=== PATIENT | female | born 1960 | race Caucasian/White ===

== ENCOUNTER 2017-09-24 15:29 | Emergency (ER) | payer MEDICAID ==
[2017-09-24 15:29] VITALS: BMI 28.7
[2017-09-24 15:46] VITALS: PULSE 75; TEMP 98.8; O2SAT 100
--- NOTE | 2017-09-24 16:47 | C.PDOC ---
History Of Present Illness 57 y/o F c PMHx vertigo p/w dizziness since yesterday. Describes as spinning sensation when moving her head that is similar to previous vertigo. She also reports that she took her blood pressure yesterday and it was 140/90 and she has never had HTN before. She also reports a fingerstick yesterday of 200+ and she has never had diabetes before either. Denies vision change, vomiting, numbness or tingling. Time Seen by Provider: 09/24/17 15:56 Chief Complaint (Nursing): Dizziness/Lightheaded Past Medical History Vital Signs: Last Vital Signs Temp 98.8 F 09/24/17 15:44 Pulse 75 09/24/17 15:44 Resp 20 09/24/17 15:44 BP 140/91 H 09/24/17 15:44 Pulse Ox 100 09/24/17 17:06 - Medical History PMH: Arthritis Family History: States: No Known Family Hx - Social History Hx Alcohol Use: Yes Hx Substance Use: No - Immunization History Hx Tetanus Toxoid Vaccination: No Hx Influenza Vaccination: No Hx Pneumococcal Vaccination: No Review Of Systems Except As Marked, All Systems Reviewed And Found Negative. Constitutional: Negative for: Fever Cardiovascular: Negative for: Chest Pain Physical Exam - Physical Exam Additional Physical Exam Comments: Gen: NAD Head: NC/AT Eyes: PERRL ENT: MMM Neck: Supple Chest: No tenderness CV: REgular rate Lungs: CTA b/l Abd: Soft, NT Back: No CVA tenderness Skin: No rash Neuro: Alert, no focal deficit ED Course And Treatment - Laboratory Results Result Diagrams: 09/24/17 16:44 09/24/17 16:44 O2 Sat by Pulse Oximetry: 100 Medical Decision Making Medical Decision Making: Symptoms consistent with BPPV. Likely with developing undiagnosed HTN and DM. At time of discharge, patient states she feels all better. Will discharge, f/u ENT, discuss HTN with PMD. Disposition - Disposition Referrals: Leo Escobar MD [Staff Provider] - Disposition: HOME/ ROUTINE Disposition Time: 17:06 Condition: STABLE Prescriptions: Meclizine [Antivert] 25 mg PO TID PRN #20 tab PRN Reason: Dizziness Instructions: Vertigo (a Type of Dizziness), High Blood Pressure in Adults Forms: [employer] (Malawian) Print Language: HEBREW - Clinical Impression Clinical Impression: BPPV (benign paroxysmal positional vertigo)
[2017-09-24 16:52] LABS: BASO # 0.1 K/uL (0.0-0.2); BASO % 1.3 % (0.0-2.0); EOS # 0.2 K/uL (0.0-0.7); EOS % 3.7 % (0.0-4.0); HEMOGLOBIN 13.3 g/dL (11.0-16.0); LYMPH # 2.3 K/uL (1.0-4.3); MEAN CELL VOLUME 93.4 fL (81.0-99.0); MEAN CORPUSCULAR HEMOGLOBIN 32.5 pg (27.0-31.0); MEAN CORPUSCULAR HGB CONC 34.8 g/dL (33.0-37.0); MEAN PLATELET VOLUME 8.8 fL (7.2-11.7); MONO # 0.4 K/uL (0.0-0.8); MONO % 6.6 % (0.0-10.0); NEUT # 3.5 K/uL (1.8-7.0); NEUT % 53.4 % (50.0-75.0); RBC 4.08 Mil/uL (3.80-5.20); RED CELL DISTRIBUTION WIDTH 12.7 % (11.5-14.5); WHITE BLOOD COUNT 6.6 K/uL (4.8-10.8)
[2017-09-24 17:01] LABS: ALB/GLOB RATIO 1.3 (1.0-2.1); ALBUMIN 4.7 g/dL (3.5-5.0); ALT/SGPT 24 U/L (9-52); AST/SGOT 27 U/L (14-36); BLOOD UREA NITROGEN 10 mg/dL (7-17); CALCIUM 9.8 mg/dl (8.6-10.4); GFR AFRICAN-AMERICAN > 60; GFR NON-AFRICAN AMERICAN > 60; SQUAMOUS EPITHIAL 2 /hpf (0-5); URINE BACTERIA RARE (<OCC); URINE BILIRUBIN NEGATIVE (NEGATIVE); URINE BLOOD NEGATIVE (NEGATIVE); URINE CLARITY Clear (Clear); URINE COLOR Straw (YELLOW); URINE GLUCOSE (UA) NORMAL (Normal); URINE LEUKOCYTE ESTERASE NEG Leu/uL (Negative); URINE PROTEIN NEGATIVE (NEGATIVE); URINE UROBILINOGEN NORMAL mg/dL (0.2-1.0)
[2017-09-24 18:14] VITALS: BP 140/90; RESP 18
== END 2017-09-24 17:45 | disposition home or self-care (01) ==
LOC: C.ER 15:29
DX: H81.10 Benign paroxysmal vertigo, unspecified ear (principal)

== ENCOUNTER 2018-06-06 02:14 | Emergency (ER) | payer MEDICAID ==
[2018-06-06 02:14] VITALS: BMI 28.7
[2018-06-06 02:25] VITALS: TEMP 97.7; O2SAT 99
[2018-06-06] MEDS ORDERED: Sodium Chloride 0.9% 500 ML IV ONE (02:50)
[2018-06-06 03:20] LABS: BASO # 0.1 K/uL (0.0-0.2); BASO % 1.1 % (0.0-2.0); EOS # 0.3 K/uL (0.0-0.7); EOS % 4.7 % (0.0-4.0); HEMOGLOBIN 13.2 g/dL (11.0-16.0); LYMPH # 2.4 K/uL (1.0-4.3); LYMPH % 41.1 % (20.0-40.0); MEAN CELL VOLUME 95.7 fL (81.0-99.0); MEAN CORPUSCULAR HGB CONC 33.5 g/dL (33.0-37.0); MEAN PLATELET VOLUME 8.8 fL (7.2-11.7); MONO # 0.4 K/uL (0.0-0.8); MONO % 7.7 % (0.0-10.0); NEUT # 2.6 K/uL (1.8-7.0); NEUT % 45.4 % (50.0-75.0); NRBC % 0.1 % (0.0-2.0); RBC 4.13 Mil/uL (3.80-5.20); RED CELL DISTRIBUTION WIDTH 12.8 % (11.5-14.5); WHITE BLOOD COUNT 5.8 K/uL (4.8-10.8)
--- NOTE | 2018-06-06 03:29 | C.PDOC ---
History Of Present Illness 58 year old female with PMHx of vertigo presents to the ED c/o dizziness since yesterday. Patient reports today she felt brief headache located on her left orbital area. Patient reports her headache as now resolved but still feeling lightheaded. Patient currently taking Meclizine, reports her dizziness is not a spinning sensation but lightheadedness. Patient also c/o left sided "chest discomfort and epigastric discomfort" that has been intermittent for 3 days but is mild now. Patient states she has history of GERD and thinks symptoms might be related. Patient denies fever, chills, nausea, vomit, weakness, visual changes, injury, fall, trauma, SOB, CP, palpitations. Time Seen by Provider: 06/06/18 02:27 Chief Complaint (Nursing): Headache History Per: Patient History/Exam Limitations: no limitations Onset/Duration Of Symptoms: Days Current Symptoms Are (Timing): Still Present Quality: "Pain" Recent travel outside of the [place]: No Additional History Per: Patient Past Medical History Reviewed: Historical Data, Nursing Documentation, Vital Signs Vital Signs: Last Vital Signs Temp 97.7 F 06/06/18 02:22 Pulse 76 06/06/18 02:22 Resp 20 06/06/18 02:22 BP 145/79 06/06/18 02:22 Pulse Ox 99 06/06/18 02:22 - Medical History PMH: Arthritis, GERD Other PMH: vertigo Surgical History: No Surg Hx Family History: States: Unknown Family Hx - Social History Hx Alcohol Use: No Hx Substance Use: No - Immunization History Hx Tetanus Toxoid Vaccination: No Hx Influenza Vaccination: No Hx Pneumococcal Vaccination: No Review Of Systems Constitutional: Negative for: Fever, Chills Eyes: Negative for: Vision Change Cardiovascular: Positive for: Chest Pain. Negative for: Palpitations Respiratory: Negative for: Cough, Shortness of Breath Gastrointestinal: Negative for: Nausea, Vomiting, Abdominal Pain Skin: Negative for: Rash Neurological: Positive for: Headache, Dizziness. Negative for: Weakness, Numbness Physical Exam - Physical Exam Appears: Non-toxic, No Acute Distress Skin: Normal Color, Warm, Dry Head: Atraumatic, Normacephalic, Other (no reproducible vertigo with change in position) Eye(s): bilateral: Normal Inspection, PERRL, EOMI Ear(s): Bilateral: Normal Oral Mucosa: Moist Neck: Normal ROM, No Midline Cervical Tenderness, Supple Chest: Symmetrical Cardiovascular: Rhythm Regular Respiratory: Normal Breath Sounds, No Rales, No Rhonchi, No Wheezing Gastrointestinal/Abdominal: Soft, No Tenderness, No Guarding, No Rebound Extremity: Normal ROM, No Tenderness, No Swelling Neurological/Psych: Oriented x3, Normal Speech, Normal Cognition, Other (no nystagmus ) Gait: Steady ED Course And Treatment - Laboratory Results Result Diagrams: 06/06/18 03:08 06/06/18 03:08 ECG: Interpreted By Me, Viewed By Me ECG Rhythm: Sinus Rhythm, R BBB (incomplete) Rate From EC (BPM) O2 Sat by Pulse Oximetry: 99 (ON RA) Pulse Ox Interpretation: Normal Progress Note: Plan: - EKG. - Labs. - Pepcid 20 mg IVP. - IV fluids. Labs and EKG reviewed and d/w pt and pt reports feeling much better. Pt advised follow up with Dr Hernández -PCP in 1-2 santoro for follow up Reassessment Condition: Improved Disposition - Disposition Disposition: HOME/ ROUTINE Disposition Time: 05:06 Condition: STABLE Additional Instructions: May continue meclizine as needed Follow up with Dr Hernández Take tylenol for pain Return to ER if sx worse Instructions: Vertigo (a Type of Dizziness), Dyspepsia (DC) Forms: [employer] (Urdu) Print Language: BERMUDIAN - Clinical Impression Clinical Impression: Dizziness, Epigastric pain - PA / INSURANCE SALES PRODUCER / Resident Statement MD/DO has reviewed & agrees with the documentation as recorded. - Scribe Statement The provider has reviewed the documentation as recorded by the Scribe Faheem Dowd All medical record entries made by the Baldemariberwin were at my direction and personally dictated by me. I have reviewed the chart and agree that the record accurately reflects my personal performance of the history, physical exam, medical decision making, and the department course for this patient. I have also personally directed, reviewed, and agree with the discharge instructions and disposition.
[2018-06-06 03:31] LABS: ALB/GLOB RATIO 1.3 (1.0-2.1); ALBUMIN 4.5 g/dL (3.5-5.0); ALT/SGPT 16 U/L (9-52); AST/SGOT 26 U/L (14-36); BLOOD UREA NITROGEN 13 mg/dL (7-17); CALCIUM 9.6 mg/dl (8.6-10.4); GFR NON-AFRICAN AMERICAN > 60
[2018-06-06 05:01] VITALS: BP 123/82; PULSE 66; RESP 16
--- NOTE | 2018-06-07 18:06 | CARD ---
APPROVED REPORT Date of service: 06/06/2018 EKG Measurement Heart [id number] <Conclusion> Normal sinus rhythm Incomplete right bundle branch block Borderline ECG
== END 2018-06-06 05:25 | disposition home or self-care (01) ==
LOC: C.ER 02:14
DX: R42 Dizziness and giddiness (principal); R10.13 Epigastric pain
CPT/HCPCS: 80053; 84484; 85025; 93005; 96361; 96374; 99284; J7040

== ENCOUNTER 2018-06-15 11:55 | Emergency (ER) | payer MEDICAID ==
[2018-06-15 11:55] VITALS: BMI 28.7
[2018-06-15 12:01] VITALS: O2SAT 100
[2018-06-15] MEDS ORDERED: Sodium Chloride 0.9% 500 ML IV ONE (12:39)
[2018-06-15 12:49] LABS: BASO % 0.7 % (0.0-2.0); EOS # 0.2 K/uL (0.0-0.7); EOS % 3.2 % (0.0-4.0); HEMOGLOBIN 13.5 g/dL (11.0-16.0); LYMPH # 2.3 K/uL (1.0-4.3); LYMPH % 36.9 % (20.0-40.0); MEAN CELL VOLUME 95.5 fL (81.0-99.0); MEAN CORPUSCULAR HEMOGLOBIN 31.9 pg (27.0-31.0); MEAN CORPUSCULAR HGB CONC 33.4 g/dL (33.0-37.0); MEAN PLATELET VOLUME 9.1 fL (7.2-11.7); MONO # 0.4 K/uL (0.0-0.8); MONO % 6.7 % (0.0-10.0); NEUT # 3.3 K/uL (1.8-7.0); NEUT % 52.5 % (50.0-75.0); RBC 4.23 Mil/uL (3.80-5.20); RED CELL DISTRIBUTION WIDTH 12.5 % (11.5-14.5); WHITE BLOOD COUNT 6.4 K/uL (4.8-10.8)
[2018-06-15 12:52] LABS: SQUAMOUS EPITHIAL < 1 /hpf (0-5); URINE BILIRUBIN NEGATIVE (NEGATIVE); URINE BLOOD NEGATIVE (NEGATIVE); URINE CLARITY Clear (Clear); URINE COLOR Colorless (YELLOW); URINE GLUCOSE (UA) NORMAL (Normal); URINE LEUKOCYTE ESTERASE NEG Leu/uL (Negative); URINE PROTEIN NEGATIVE (NEGATIVE); URINE UROBILINOGEN NORMAL mg/dL (0.2-1.0)
[2018-06-15 13:15] LABS: ALB/GLOB RATIO 1.4 (1.0-2.1); ALBUMIN 4.7 g/dL (3.5-5.0); ALT/SGPT 16 U/L (9-52); AST/SGOT 36 U/L (14-36); BLOOD UREA NITROGEN 11 mg/dL (7-17); CALCIUM 9.8 mg/dl (8.6-10.4); GFR NON-AFRICAN AMERICAN > 60
--- NOTE | 2018-06-15 13:31 | C.PDOC ---
History Of Present Illness 58 year old female presents to ED with complaint of heart pounding. Patient states she had a light breakfast and took her medication. Patient takes Meclizine everyday. Her family brought her to the hospital. Patient has a PMHx of gastritis and Meniere's disease. She states she bent down and heard her heart pound 3 times and became worried and lightheaded. Patient denies nausea, vomiting, chest pain, SOB, headache, and dizziness. Time Seen by Provider: 06/15/18 12:12 Chief Complaint (Nursing): Medical Clearance History Per: Patient History/Exam Limitations: no limitations Onset/Duration Of Symptoms: Hrs Current Symptoms Are (Timing): Still Present Past Medical History Reviewed: Historical Data, Nursing Documentation, Vital Signs Vital Signs: Last Vital Signs Temp 97.9 F 06/15/18 11:57 Pulse 77 06/15/18 11:57 Resp 20 06/15/18 12:20 BP 135/85 06/15/18 11:57 Pulse Ox 100 06/15/18 11:57 - Medical History PMH: Arthritis, Gastritis, GERD Surgical History: No Surg Hx Family History: States: Unknown Family Hx - Social History Hx Alcohol Use: No Hx Substance Use: No - Immunization History Hx Tetanus Toxoid Vaccination: No Hx Influenza Vaccination: No Hx Pneumococcal Vaccination: No Review Of Systems Constitutional: Negative for: Fever, Chills, Weakness Cardiovascular: Positive for: Light Headedness, Other ("heart pounding"). Negative for: Chest Pain Respiratory: Negative for: Shortness of Breath Gastrointestinal: Negative for: Nausea, Vomiting Neurological: Negative for: Weakness, Numbness, Headache, Dizziness Physical Exam - Physical Exam Appears: Well, Non-toxic, No Acute Distress, Other (cooperative) Skin: Normal Color, Warm, Dry Head: Atraumatic, Normacephalic Neck: Normal ROM, Supple Chest: Symmetrical, No Deformity Cardiovascular: Rhythm Regular, No Murmur Respiratory: No Accessory Muscle Use Neurological/Psych: Oriented x3, Normal Speech, Normal Cognition ED Course And Treatment - Laboratory Results Result Diagrams: 06/15/18 12:45 06/15/18 12:45 Lab Results: Troponin I < 0.0120 ng/mL (0.00-0.120) 06/15/18 12:45 Total Bilirubin 0.5 mg/dL (0.2-1.3) 06/15/18 12:45 AST 36 U/L (14-36) D 06/15/18 12:45 ALT 16 U/L (9-52) 06/15/18 12:45 Alkaline Phosphatase 110 U/L (38-126) 06/15/18 12:45 Total Protein 8.1 g/dL (6.3-8.3) 06/15/18 12:45 Albumin 4.7 g/dL (3.5-5.0) 06/15/18 12:45 Globulin 3.4 gm/dL (2.2-3.9) 06/15/18 12:45 Albumin/Globulin Ratio 1.4 (1.0-2.1) 06/15/18 12:45 Urine Color Colorless (YELLOW) 06/15/18 12:45 Urine Clarity Clear (Clear) 06/15/18 12:45 Urine pH 8.0 (5.0-8.0) 06/15/18 12:45 Ur Specific [place] 1.001 (1.003-1.030) L 06/15/18 12:45 Urine Protein Negative mg/dL (NEGATIVE) 06/15/18 12:45 Urine Glucose (UA) Normal mg/dL (Normal) 06/15/18 12:45 Urine Ketones Negative mg/dL (NEGATIVE) 06/15/18 12:45 Urine Blood Negative (NEGATIVE) 06/15/18 12:45 Urine Nitrate Negative (NEGATIVE) 06/15/18 12:45 Urine Bilirubin Negative (NEGATIVE) 06/15/18 12:45 Urine Urobilinogen Normal mg/dL (0.2-1.0) 06/15/18 12:45 Ur Leukocyte Esterase Neg Monique/uL (Negative) 06/15/18 12:45 Ur Squamous Epith Cells < 1 /hpf (0-5) 06/15/18 12:45 ECG: Interpreted By Me, Viewed By Me ECG Rhythm: Sinus Rhythm ECG Interpretation: Normal Interpretation Of ECG: No ST elevations or depressions. Rate From EC O2 Sat by Pulse Oximetry: 100 (in RA) Medical Decision Making Medical Decision Making: Impression: 58 year old female complaining of "chest pounding" and lightheadedness. Plan: EKG ordered for patient. Labs ordered for patient with UA. Patient given IV fluids. Disposition Counseled Patient/Family Regarding: Studies Performed, Diagnosis, Need For Followup - Disposition Disposition: HOME/ ROUTINE Disposition Time: 13:55 Condition: STABLE Instructions: Palpitations Forms: [facility] [employer] (Sudanese), General Discharge Instructions - POA Present On Arrival: None - Clinical Impression Clinical Impression: Dizziness, Palpitations - Scribe Statement The provider has reviewed the documentation as recorded by the Scribe (Lois Sharif) All medical record entries made by the Scribe were at my direction and personally dictated by me. I have reviewed the chart and agree that the record accurately reflects my personal performance of the history, physical exam, medical decision making, and the department course for this patient. I have also personally directed, reviewed, and agree with the discharge instructions and disposition.
[2018-06-15 14:08] VITALS: BP 126/80; PULSE 68; RESP 18; TEMP 98.2
--- NOTE | 2018-06-18 12:50 | CARD ---
APPROVED REPORT Date of service: 06/15/2018 EKG Measurement Heart [id number] <Conclusion> Sinus rhythm with marked sinus arrhythmia Otherwise normal ECG
== END 2018-06-15 14:11 | disposition home or self-care (01) ==
LOC: C.ER 11:55
DX: R00.2 Palpitations (principal); R42 Dizziness and giddiness
CPT/HCPCS: 80053; 81001; 84484; 85025; 99285; J7040

== ENCOUNTER 2018-06-28 13:52 | Emergency (ER) | payer MEDICAID | END 2018-06-28 15:44 | disposition home or self-care (01) | LOC: C.ER 13:52 ==

== ENCOUNTER 2018-07-06 08:48 | Observation (INO) | payer MEDICAID ==
[2018-07-06 08:56] VITALS: BMI 29.5
[2018-07-06] MEDS ORDERED: Aspirin 325 mg EC Tablets PO STA (09:07)
--- NOTE | 2018-07-06 09:11 | C.PDOC ---
History Of Present Illness 58 y/o female presents to the ED for complaints of left-sided chest pain since yesterday. Patient is unable to characterize pain. No fevers. Patient denies any SOB, palpitations, nausea, vomiting, dizziness, or other complaints. Time Seen by Provider: 07/06/18 09:00 Chief Complaint (Nursing): Chest Pain History Per: Patient History/Exam Limitations: no limitations Onset/Duration Of Symptoms: Days (x2) Current Symptoms Are (Timing): Still Present Severity: Moderate Past Medical History Reviewed: Historical Data, Nursing Documentation, Vital Signs Vital Signs: Last Vital Signs Temp 98.7 F 07/06/18 08:53 Pulse 86 07/06/18 08:53 Resp 17 07/06/18 08:53 BP 124/77 07/06/18 08:53 Pulse Ox 100 07/06/18 08:53 - Medical History PMH: Arthritis, Gastritis, GERD Family History: States: Unknown Family Hx - Social History Hx Alcohol Use: No Hx Substance Use: No - Immunization History Hx Tetanus Toxoid Vaccination: No Hx Influenza Vaccination: Yes (2018) Hx Pneumococcal Vaccination: No Review Of Systems Except As Marked, All Systems Reviewed And Found Negative. Constitutional: Negative for: Fever, Sweats Eyes: Negative for: Vision Change Cardiovascular: Positive for: Chest Pain. Negative for: Palpitations Respiratory: Negative for: Cough, Shortness of Breath Gastrointestinal: Negative for: Nausea, Vomiting, Diarrhea Musculoskeletal: Negative for: Back Pain Skin: Negative for: Rash Neurological: Negative for: Weakness, Numbness, Headache, Dizziness Physical Exam - Physical Exam Appears: Non-toxic, No Acute Distress Skin: Warm, Dry, No Diaphoretic Head: Atraumatic, Normacephalic Eye(s): bilateral: Normal Inspection, PERRL, EOMI Oral Mucosa: Moist Neck: Normal ROM Chest: Symmetrical, No Deformity, No Tenderness Cardiovascular: Rhythm Regular, No Murmur Respiratory: Normal Breath Sounds, No Rales, No Rhonchi, No Wheezing Gastrointestinal/Abdominal: Soft, No Tenderness, No Distention, No Guarding Extremity: Normal ROM, No Calf Tenderness, No Deformity, No Swelling Pulses: Left Radial: Normal, Right Radial: Normal Neurological/Psych: Oriented x3, Normal Speech Gait: Steady ED Course And Treatment - Laboratory Results Result Diagrams: 07/06/18 09:34 07/06/18 09:34 ECG: Interpreted By Me ECG Rhythm: Sinus Rhythm Interpretation Of ECG: No ST or T wave changes Rate From EC O2 Sat by Pulse Oximetry: 100 (on RA) Pulse Ox Interpretation: Normal Medical Decision Making Medical Decision Making: Impression: Chest pain, r/o ACS 3 visits to er recently - Initial Plan: - Blood work - UA - EKG - Chest x-ray - 325 mg Aspirin PO - Reassess labs neg. pain improevd. as pt as repeated visits to er, will admit for cardiology eval Disposition - Disposition Disposition: HOSPITALIZED Disposition Time: 13:54 Condition: STABLE - Clinical Impression Clinical Impression: Chest pain - Scribe Statement The provider has reviewed the documentation as recorded by the Alexa Ortiz Provider Attestation: All medical record entries made by the Alexa were at my direction and personally dictated by me. I have reviewed the chart and agree that the record accurately reflects my personal performance of the history, physical exam, medical decision making, and the department course for this patient. I have also personally directed, reviewed, and agree with the discharge instructions and disposition. Decision To Admit - Pt Status Changed To: Hospital Disposition Of: Observation - . Bed Request Type: Telemetry Admitting Physician: Tk Go Patient Diagnosis: Chest pain
[2018-07-06 09:39] LABS: BASO # 0.1 K/uL (0.0-0.2); BASO % 1.2 % (0.0-2.0); EOS # 0.2 K/uL (0.0-0.7); EOS % 4.2 % (0.0-4.0); HEMOGLOBIN 13.2 g/dL (11.0-16.0); LYMPH % 33.3 % (20.0-40.0); MEAN CELL VOLUME 95.8 fL (81.0-99.0); MEAN CORPUSCULAR HEMOGLOBIN 32.4 pg (27.0-31.0); MEAN CORPUSCULAR HGB CONC 33.8 g/dL (33.0-37.0); MEAN PLATELET VOLUME 8.6 fL (7.2-11.7); MONO # 0.5 K/uL (0.0-0.8); MONO % 8.2 % (0.0-10.0); NEUT # 3.1 K/uL (1.8-7.0); NEUT % 53.1 % (50.0-75.0); NRBC % 0.1 % (0.0-2.0); RBC 4.08 Mil/uL (3.80-5.20); RED CELL DISTRIBUTION WIDTH 12.4 % (11.5-14.5); WHITE BLOOD COUNT 5.9 K/uL (4.8-10.8)
[2018-07-06 09:47] LABS: INR 1.1; PROTHROMBIN TIME 11.6 SECONDS (9.7-12.2); SQUAMOUS EPITHIAL 3 /hpf (0-5); URINE BACTERIA RARE (<OCC); URINE BILIRUBIN NEGATIVE (NEGATIVE); URINE BLOOD NEGATIVE (NEGATIVE); URINE CLARITY Clear (Clear); URINE COLOR Straw (YELLOW); URINE GLUCOSE (UA) NORMAL (Normal); URINE LEUKOCYTE ESTERASE NEG Leu/uL (Negative); URINE PROTEIN NEGATIVE (NEGATIVE); URINE UROBILINOGEN NORMAL mg/dL (0.2-1.0)
[2018-07-06 09:56] LABS: ALB/GLOB RATIO 1.4 (1.0-2.1); ALBUMIN 4.5 g/dL (3.5-5.0); ALT/SGPT 16 U/L (9-52); AST/SGOT 28 U/L (14-36); BLOOD UREA NITROGEN 11 mg/dL (7-17); CALCIUM 9.6 mg/dl (8.6-10.4); GFR NON-AFRICAN AMERICAN > 60
[2018-07-06] MEDS ORDERED: Aspirin 325 mg EC Tablets PO ONE (10:17)
--- NOTE | 2018-07-06 10:43 | RAD ---
Date of service: 07/06/2018 HISTORY: Chest pain COMPARISON: No prior. TECHNIQUE: Chest PA and lateral FINDINGS: LINES AND TUBES: None. LUNG AND PLEURA: The lungs are well inflated and clear. There is multifocal linear atelectasis/scarring in the left lower lobe. No pleural effusion or pneumothorax. HEART AND MEDIASTINUM: Mild cardiomegaly. No aortic atherosclerotic calcifications present. The hilar and mediastinal contours are within normal limits. SKELETAL STRUCTURES: The bony structures are within normal limits for the patient's age. VISUALIZED UPPER ABDOMEN: Normal. OTHER FINDINGS: None. IMPRESSION: No active pulmonary disease.
--- NOTE | 2018-07-06 10:46 | CP.PCM.HP ---
<Nigel William - Last Filed: 07/06/18 13:18> History of Present Illness - History of Present Illness History of Present Illness: PGY1 History and Physical for Dr. Go This is a 58 year old Georgian speaking female with PMH of gastritis, GERD, arthritis, menierre's disease, sinusitis, anemia who presents with left sided chest and shoulder pain associated with shortness of breath which started yesterday at 1 pm. Chest pain is described as left sternal chest pressure including the left shoulder, nonradiating, intermittent, 9/10 on onset, which started at 1 pm after going up 2 flights of stairs. She describes her SOB as "hard to breath," and associated with left chest wall pain on deep inspiration. She states she took a Meclizine 25 mg PO at 1pm when the pain started, and the pain when away at 230pm. Endorses numbness and tingling of the left third digit at onset of chest pain, w hich resolved shorty after onset of symptoms. Endorses epigastric abdominal pain as well, which feels like "reflux and gas." She was previously taking Omeprazole until 06/06/18. Endorses Endorses SOB after walking 1 block with palpitations, but unable to quantify for how long she has had this. Palpitations are describes as a fast heart rate. Denies fever, chills, recent illness, headache, blurry vision, visual changes, syncope, fall, trauma, heavy lifting, n/v/d, hematochezia, melena, dysuria, leg pain or swelling, recent travel, car rides longer than 4 hours. Currently, she only endorses the epigastric discomfort. PMD: [place] PMH: gastritis, GERD, arthritis, menierre's disease, sinusitis, anemia PSH: c/s x2 (1983, 1987) Meds: Meclizine 25 mg PO q6h, Tab-A-Fredrick daily Allx: PCN (rash) FHx: denies. denies family history of cancers SHx: denies history of smoking, drug use. Occasional etoh use. Colonoscopy: never Pap smear: 2018, normal as per pt Mammogram: 2018, normal as per pt Present on Admission - Present on Admission Any Indicators Present on Admission: No Review of Systems - Review of Systems All systems: reviewed and no additional remarkable complaints except (as per HPI) Past Patient History - Infectious Disease Hx of Infectious Diseases: None - Past Social History Smoking Status: Never Smoked - NEUROLOGICAL Hx Neurological Disorder: Yes Hx Vertigo: Yes - MUSCULOSKELETAL/RHEUMATOLOGICAL Hx Arthritis: Yes - GASTROINTESTINAL Hx Gastritis: Yes - PSYCHIATRIC Hx Substance Use: No - SURGICAL HISTORY Hx Surgeries: Yes (SEE COMMENT) Hx Section: Yes (x2 (1983,1987)) - ANESTHESIA Hx Anesthesia: Yes Hx Anesthesia Reactions: No Meds Allergies/Adverse Reactions: Allergies Allergy/AdvReac Type Severity Reaction Status Date / Time Penicillins Allergy RASH Verified 07/06/18 08:52 Physical Exam - Constitutional Appears: Non-toxic, No Acute Distress - Head Exam Head Exam: ATRAUMATIC, NORMAL INSPECTION - Eye Exam Eye Exam: EOMI, Normal appearance, PERRL - Neck Exam Additional comments: (+) trapezious hypertonicity bilaterally, nontender - Respiratory Exam Respiratory Exam: Chest Wall Tenderness (left sternal tenderness to palpation), NORMAL BREATHING PATTERN. absent: Accessory Muscle Use, Decreased Breath Sounds, Rales, Rhonchi, Wheezes, Respiratory Distress, Stridor - Cardiovascular Exam Cardiovascular Exam: REGULAR RHYTHM, +S1, +S2. absent: Tachycardia, Clicks, Diastolic murmur, Irregular Rhythm, JVD, Rubs, Systolic Murmur - GI/Abdominal Exam GI & Abdominal Exam: Normal Bowel Sounds, Soft, Tenderness (mild tenderness to palpatin of the epigastrium). absent: Diminished Bowel Sounds, Distended, Firm, Guarding, Hernia, Hypoactive Bowel Sounds, Rebound, Rigid - Extremities Exam Extremities exam: Positive for: normal capillary refill, pedal pulses present (2+ bilateral upper and lower distal extremity pulses). Negative for: calf tenderness, pedal edema - Back Exam Back exam: NORMAL INSPECTION. absent: rash noted - Neurological Exam Neurological exam: Alert, CN II-XII Intact, Oriented x3 Additional comments: (+) 5/5 strength in bilateral lower extremities, 4/5 strength in left upper extremity secondary to shoulder pain, 5/5 strength in right upper extremity - Psychiatric Exam Psychiatric exam: Anxious, Normal Affect, Normal Mood - Skin Skin Exam: Dry, Intact, Normal Color, Warm Results - Vital Signs Recent Vital Signs: Last Vital Signs Temp 98.7 F 07/06/18 08:53 Pulse 86 07/06/18 08:53 Resp 17 07/06/18 08:53 BP 124/77 07/06/18 08:53 Pulse Ox 100 07/06/18 09:11 - Labs Result Diagrams: 07/06/18 09:34 07/06/18 09:34 Labs: Laboratory Results - last 24 hr 07/06/18 07/06/18 07/06/18 09:34 09:34 09:34 WBC 5.9 RBC 4.08 Hgb 13.2 Hct 39.1 MCV 95.8 MCH 32.4 H MCHC 33.8 RDW 12.4 Plt Count 222 MPV 8.6 Neut % (Auto) 53.1 Lymph % (Auto) 33.3 [place] % (Auto) 8.2 Eos % (Auto) 4.2 H Baso % (Auto) 1.2 Neut # (Auto) 3.1 Lymph # (Auto) 2.0 [place] # (Auto) 0.5 Eos # (Auto) 0.2 Baso # (Auto) 0.1 PT 11.6 INR 1.1 APTT 33 Sodium 138 Potassium 3.6 Chloride 102 Carbon Dioxide 31 H Anion Gap 9 L BUN 11 Creatinine 0.7 Est GFR ( Amer) > 60 Est GFR (Non-Af Amer) > 60 Random Glucose 76 D Calcium 9.6 Total Bilirubin 0.4 AST 28 ALT 16 Alkaline Phosphatase 98 Troponin I < 0.0120 Total Protein 7.7 Albumin 4.5 Globulin 3.1 Albumin/Globulin Ratio 1.4 Urine Color Urine Clarity Urine pH Ur Specific [place] Urine Protein Urine Glucose (UA) Urine Ketones Urine Blood Urine Nitrate Urine Bilirubin Urine Urobilinogen Ur Leukocyte Esterase Urine WBC (Auto) Urine RBC (Auto) Ur Squamous Epith Cells Urine Bacteria 07/06/18 09:34 WBC RBC Hgb Hct MCV MCH MCHC RDW Plt Count MPV Neut % (Auto) Lymph % (Auto) [place] % (Auto) Eos % (Auto) Baso % (Auto) Neut # (Auto) Lymph # (Auto) [place] # (Auto) Eos # (Auto) Baso # (Auto) PT INR APTT Sodium Potassium Chloride Carbon Dioxide Anion Gap BUN Creatinine Est GFR ( Amer) Est GFR (Non-Af Amer) Random Glucose Calcium Total Bilirubin AST ALT Alkaline Phosphatase Troponin I Total Protein Albumin Globulin Albumin/Globulin Ratio Urine Color Straw Urine Clarity Clear Urine pH 8.0 Ur Specific [place] 1.003 Urine Protein Negative Urine Glucose (UA) Normal Urine Ketones Negative Urine Blood Negative Urine Nitrate Negative Urine Bilirubin Negative Urine Urobilinogen Normal Ur Leukocyte Esterase Neg Urine WBC (Auto) < 1 Urine RBC (Auto) < 1 Ur Squamous Epith Cells 3 Urine Bacteria Rare Assessment & Plan - Assessment and Plan (Free Text) Assessment: This is a 58 year old Georgian speaking female with PMH of gastritis, GERD, arthritis, menierre's disease, sinusitis, anemia who presents with left sided chest and shoulder pain associated with shortness of breath which started yesterday at 1 pm. Endorses epigastric tenderness as well. Plan: Chest pain, with sob, palpitations Likely musculoskeletal as worse with movement and palpation Currently hemodynamically stable, no tachycardia Troponin x 1 is normal, EKG shows NSR at 73 no acute STTW changes. Will trend troponin q6h x2 f/u EKG in am CXR shows no active cardiopulmonary disease Pt received ASA 325 mg PO x1 in the ED UDS normal F/u Mg, Ph Dyspnea on exertion No tachycardia CXR as above F/u echocardiogram F/u BNP Epigastric abdominal pain Hx of gastritis, GERD; On omeprazole previously CXR does not show any free fair Pepcid 20 mg PO x 1, will continue daily starting tomorrow Lipase is 87 UA normal PPX: GI: Pepcid 20 mg PO daily VTE: SCDs, no indication for chemical anticoagulation at this time HHD Telemetry case discussed with Dr. Go <Tk Go - Last Filed: 07/06/18 15:19> Results - Vital Signs Recent Vital Signs: Last Vital Signs Temp 98.7 F 07/06/18 13:54 Pulse 74 07/06/18 13:54 Resp 20 07/06/18 13:54 BP 100/64 07/06/18 13:54 Pulse Ox 100 07/06/18 13:59 - Labs Result Diagrams: 07/06/18 09:34 07/06/18 09:34 Labs: Laboratory Results - last 24 hr 07/06/18 07/06/18 07/06/18 09:34 09:34 09:34 WBC 5.9 RBC 4.08 Hgb 13.2 Hct 39.1 MCV 95.8 MCH 32.4 H MCHC 33.8 RDW 12.4 Plt Count 222 MPV 8.6 Neut % (Auto) 53.1 Lymph % (Auto) 33.3 [place] % (Auto) 8.2 Eos % (Auto) 4.2 H Baso % (Auto) 1.2 Neut # (Auto) 3.1 Lymph # (Auto) 2.0 [place] # (Auto) 0.5 Eos # (Auto) 0.2 Baso # (Auto) 0.1 PT 11.6 INR 1.1 APTT 33 Sodium 138 Potassium 3.6 Chloride 102 Carbon Dioxide 31 H Anion Gap 9 L BUN 11 Creatinine 0.7 Est GFR ( Amer) > 60 Est GFR (Non-Af Amer) > 60 Random Glucose 76 D Calcium 9.6 Phosphorus Magnesium Total Bilirubin 0.4 AST 28 ALT 16 Alkaline Phosphatase 98 Troponin I < 0.0120 NT-Pro-B Natriuret Pep Total Protein 7.7 Albumin 4.5 Globulin 3.1 Albumin/Globulin Ratio 1.4 Lipase Urine Color Urine Clarity Urine pH Ur Specific [place] Urine Protein Urine Glucose (UA) Urine Ketones Urine Blood Urine Nitrate Urine Bilirubin Urine Urobilinogen Ur Leukocyte Esterase Urine WBC (Auto) Urine RBC (Auto) Ur Squamous Epith Cells Urine Bacteria Urine Opiates Screen Urine Methadone Screen Ur Barbiturates Screen Ur Phencyclidine Scrn Ur Amphetamines Screen U Benzodiazepines Scrn U Oth Cocaine Metabols U Cannabinoids Screen 07/06/18 07/06/18 07/06/18 09:34 11:44 12:08 WBC RBC Hgb Hct MCV MCH MCHC RDW Plt Count MPV Neut % (Auto) Lymph % (Auto) [place] % (Auto) Eos % (Auto) Baso % (Auto) Neut # (Auto) Lymph # (Auto) [place] # (Auto) Eos # (Auto) Baso # (Auto) PT INR APTT Sodium Potassium Chloride Carbon Dioxide Anion Gap BUN Creatinine Est GFR ( Amer) Est GFR (Non-Af Amer) Random Glucose Calcium Phosphorus 2.3 L Magnesium 2.1 Total Bilirubin AST ALT Alkaline Phosphatase Troponin I NT-Pro-B Natriuret Pep 56.8 Total Protein Albumin Globulin Albumin/Globulin Ratio Lipase 87 Urine Color Straw Urine Clarity Clear Urine pH 8.0 Ur Specific [place] 1.003 Urine Protein Negative Urine Glucose (UA) Normal Urine Ketones Negative Urine Blood Negative Urine Nitrate Negative Urine Bilirubin Negative Urine Urobilinogen Normal Ur Leukocyte Esterase Neg Urine WBC (Auto) < 1 Urine RBC (Auto) < 1 Ur Squamous Epith Cells 3 Urine Bacteria Rare Urine Opiates Screen Negative Urine Methadone Screen Negative Ur Barbiturates Screen Negative Ur Phencyclidine Scrn Negative Ur Amphetamines Screen Negative U Benzodiazepines Scrn Negative U Oth Cocaine Metabols Negative U Cannabinoids Screen Negative Attending/Attestation - Attestation I have personally seen and examined this patient.: Yes I have fully participated in the care of the patient.: Yes I have reviewed all pertinent clinical information: Yes Notes (Text): 07/06/18 15:14 Medical attending: Patient was seen and examined by me with the medical coding instructor The patient was not in any acute distress when we came and saw the patient in the ER With the help of translation the pain was reproducible when pressing on the chest wall gently nevertheless we will still check additional troponins as well as a repeat EKG The CXRAY looked ok. Review of the lab work shows stable CBC and CMP From what I understand she reports some shortness of breath as well and so will check an 2Decho Will monitor and see how she does Also of note she was crying when I came and saw her with the medical coding instructor and we asked her why however she did not say Maybe tommorow will return with another rubber vulcanizing machine operator to see if there was some sort of event or stress, anxiety thank you Tk Go
[2018-07-06 12:23] LABS: BARBITURATES, UR NEGATIVE (NEGATIVE); BENZODIAZEPINES, UR NEGATIVE (NEGATIVE); OPIATES, UR NEGATIVE (NEGATIVE); PHENCYCLIDINE, UR NEGATIVE (NEGATIVE)
[2018-07-06 13:43] LABS: B-TYPE NATRIURETIC PEPTIDE 56.8 pg/mL (0-900)
[2018-07-06 17:36] LABS: CK-MB 0.57 ng/mL (0.0-3.38)
[2018-07-06] MEDS ORDERED: Aluminum Hydroxide/Magnesium Hydroxide Susp (30 mL) PO ONE (20:46)
[2018-07-06 22:47] LABS: CK-MB 0.46 ng/mL (0.0-3.38)
[2018-07-07 02:03] VITALS: O2SAT 97
[2018-07-07 07:40] LABS: BASO # 0.1 K/uL (0.0-0.2); BASO % 1.1 % (0.0-2.0); EOS # 0.3 K/uL (0.0-0.7); EOS % 5.2 % (0.0-4.0); HEMOGLOBIN 12.8 g/dL (11.0-16.0); LYMPH # 2.1 K/uL (1.0-4.3); LYMPH % 36.8 % (20.0-40.0); MEAN CELL VOLUME 95.3 fL (81.0-99.0); MEAN CORPUSCULAR HEMOGLOBIN 32.9 pg (27.0-31.0); MEAN CORPUSCULAR HGB CONC 34.5 g/dL (33.0-37.0); MONO # 0.4 K/uL (0.0-0.8); MONO % 7.3 % (0.0-10.0); NEUT # 2.8 K/uL (1.8-7.0); NEUT % 49.6 % (50.0-75.0); NRBC % 0.1 % (0.0-2.0); RBC 3.87 Mil/uL (3.80-5.20); RED CELL DISTRIBUTION WIDTH 12.7 % (11.5-14.5); WHITE BLOOD COUNT 5.6 K/uL (4.8-10.8)
[2018-07-07 08:11] LABS: ALB/GLOB RATIO 1.4 (1.0-2.1); ALBUMIN 4.1 g/dL (3.5-5.0); ALT/SGPT 18 U/L (9-52); AST/SGOT 28 U/L (14-36); BLOOD UREA NITROGEN 14 mg/dL (7-17); CALCIUM 9.3 mg/dl (8.6-10.4); GFR NON-AFRICAN AMERICAN > 60
[2018-07-07 09:27] VITALS: BP 106/67; RESP 20; TEMP 98.5
[2018-07-07 13:50] VITALS: PULSE 68
--- NOTE | 2018-07-07 16:28 | CARD ---
APPROVED REPORT Date of service: 07/06/2018 EXAM: Two-dimensional and M-mode echocardiogram with Doppler and color Doppler. Other Information Quality : GoodRhythm : INDICATION Dyspnea 2D DIMENSIONS IVSd1.0 (0.7-1.1cm)LVDd4.7 (3.9-5.9cm) PWd1.1 (0.7-1.1cm)LA [id number] (18-58mL) LVDs2.6 (2.5-4.0cm)FS (%) 44.6 % LVEF (%)75.9 (>50%)LVEF (Finch's)73.66 % M-Mode DIMENSIONS Left Atrium (MM)3.19 (2.5-4.0cm)IVSd0.90 (0.7-1.1cm) Aortic Root3.27 (2.2-3.7cm)LVDd5.28 (4.0-5.6cm) Aortic Cusp Exc.2.31 (1.5-2.0cm)PWd0.72 (0.7-1.1cm) FS (%) 28 %LVDs3.79 (2.0-3.8cm) Mitral Valve MV E Ggsvudqg59.2cm/sMV A Pvyhjiry36.8cm/sE/A ratio1.2 TDI Lateral E' Peak V12.09cm/sMedial E' Peak V10.16cm/sE/Lateral E'5.3 E/Medial E'6.3 Tricuspid Valve TR Peak [id number]/sTR Peak [id number] LEFT VENTRICLE The left ventricle is normal size. There is normal left ventricular wall thickness. Left ventricle systolic function is normal. The Ejection Fraction is >70%. There is normal LV segmental wall motion. The left ventricular diastolic function is normal. RIGHT VENTRICLE The right ventricle is normal size. There is normal right ventricular wall thickness. The right ventricular systolic function is normal. ATRIA The left atrium size is normal. The right atrium size is normal. The interatrial septum is intact with no evidence for an atrial septal defect. AORTIC VALVE The aortic valve is normal in structure. No aortic regurgitation is present. There is no aortic valvular stenosis. MITRAL VALVE The mitral valve is normal in structure. There is no evidence of mitral valve prolapse. There is no mitral valve stenosis. There is no mitral valve regurgitation noted. TRICUSPID VALVE The tricuspid valve is normal in structure. There is mild tricuspid regurgitation. Right ventricular systolic pressure is estimated at 30-40 mmHg. There is mild pulmonary hypertension. PULMONIC VALVE The pulmonic valve is not well visualized. There is trace pulmonic valvular regurgitation. GREAT VESSELS The aortic root is normal in size. PERICARDIAL EFFUSION There is no significant pericardial effusion. <Conclusion> Left ventricle systolic function is normal. The Ejection Fraction is >70%. No aortic regurgitation is present. There is no mitral valve regurgitation noted. There is mild tricuspid regurgitation. There is mild pulmonary hypertension. There is trace pulmonic valvular regurgitation.
--- NOTE | 2018-07-07 18:47 | CP.PCM.DIS ---
<Val Limon - Last Filed: 07/07/18 18:53> Provider - Provider Date of Admission: 07/06/18 10:30 Attending physician: Tk Go DO Time Spent in preparation of Discharge (in minutes): 32 Hospital Course - Lab Results Lab Results: Most Recent Lab Values WBC 5.6 K/uL (4.8-10.8) 07/07/18 07:22 RBC 3.87 Mil/uL (3.80-5.20) 07/07/18 07:22 Hgb 12.8 g/dL (11.0-16.0) 07/07/18 07:22 Hct 36.9 % (34.0-47.0) 07/07/18 07:22 MCV 95.3 fL (81.0-99.0) 07/07/18 07:22 MCH 32.9 pg (27.0-31.0) H 07/07/18 07:22 MCHC 34.5 g/dL (33.0-37.0) 07/07/18 07:22 RDW 12.7 % (11.5-14.5) 07/07/18 07:22 Plt Count 228 K/uL (130-400) 07/07/18 07:22 MPV 9.0 fL (7.2-11.7) 07/07/18 07:22 Neut % (Auto) 49.6 % (50.0-75.0) L 07/07/18 07:22 Lymph % (Auto) 36.8 % (20.0-40.0) 07/07/18 07:22 Craven % (Auto) 7.3 % (0.0-10.0) 07/07/18 07:22 Eos % (Auto) 5.2 % (0.0-4.0) H 07/07/18 07:22 Baso % (Auto) 1.1 % (0.0-2.0) 07/07/18 07:22 Neut # (Auto) 2.8 K/uL (1.8-7.0) 07/07/18 07:22 Lymph # (Auto) 2.1 K/uL (1.0-4.3) 07/07/18 07:22 Craven # (Auto) 0.4 K/uL (0.0-0.8) 07/07/18 07:22 Eos # (Auto) 0.3 K/uL (0.0-0.7) 07/07/18 07:22 Baso # (Auto) 0.1 K/uL (0.0-0.2) 07/07/18 07:22 PT 11.6 SECONDS (9.7-12.2) 07/06/18 09:34 INR 1.1 07/06/18 09:34 APTT 33 SECONDS (21-34) 07/06/18 09:34 Sodium 136 mmol/L (132-148) 07/07/18 07:22 Potassium 4.2 mmol/L (3.6-5.2) 07/07/18 07:22 Chloride 100 mmol/L (98-107) 07/07/18 07:22 Carbon Dioxide 30 mmol/L (22-30) 07/07/18 07:22 Anion Gap 9 (10-20) L 07/07/18 07:22 BUN 14 mg/dL (7-17) 07/07/18 07:22 Creatinine 0.8 mg/dL (0.7-1.2) 07/07/18 07:22 Est GFR ( Amer) > 60 07/07/18 07:22 Est GFR (Non-Af Amer) > 60 07/07/18 07:22 Random Glucose 93 mg/dL (65-105) D 07/07/18 07:22 Calcium 9.3 mg/dl (8.6-10.4) 07/07/18 07:22 Phosphorus 3.9 mg/dL (2.5-4.5) 07/07/18 07:22 Magnesium 2.2 mg/dL (1.6-2.3) 07/07/18 07:22 Total Bilirubin 0.5 mg/dL (0.2-1.3) 07/07/18 07:22 AST 28 U/L (14-36) 07/07/18 07:22 ALT 18 U/L (9-52) 07/07/18 07:22 Alkaline Phosphatase 98 U/L (38-126) 07/07/18 07:22 Total Creatine Kinase 79 U/L (30-135) 07/06/18 22:07 CK-MB (Mass) 0.46 ng/mL (0.0-3.38) 07/06/18 22:07 Troponin I < 0.0120 ng/mL (0.00-0.120) 07/06/18 22:07 NT-Pro-B Natriuret Pep 56.8 pg/mL (0-900) 07/06/18 12:08 Total Protein 7.2 g/dL (6.3-8.3) 07/07/18 07:22 Albumin 4.1 g/dL (3.5-5.0) 07/07/18 07:22 Globulin 3.0 gm/dL (2.2-3.9) 07/07/18 07:22 Albumin/Globulin Ratio 1.4 (1.0-2.1) 07/07/18 07:22 Lipase 87 U/L (23-300) 07/06/18 12:08 Urine Color Straw (YELLOW) 07/06/18 09:34 Urine Clarity Clear (Clear) 07/06/18 09:34 Urine pH 8.0 (5.0-8.0) 07/06/18 09:34 Ur Specific Toyah 1.003 (1.003-1.030) 07/06/18 09:34 Urine Protein Negative mg/dL (NEGATIVE) 07/06/18 09:34 Urine Glucose (UA) Normal mg/dL (Normal) 07/06/18 09:34 Urine Ketones Negative mg/dL (NEGATIVE) 07/06/18 09:34 Urine Blood Negative (NEGATIVE) 07/06/18 09:34 Urine Nitrate Negative (NEGATIVE) 07/06/18 09:34 Urine Bilirubin Negative (NEGATIVE) 07/06/18 09:34 Urine Urobilinogen Normal mg/dL (0.2-1.0) 07/06/18 09:34 Ur Leukocyte Esterase Neg Monique/uL (Negative) 07/06/18 09:34 Urine WBC (Auto) < 1 /hpf (0-5) 07/06/18 09:34 Urine RBC (Auto) < 1 /hpf (0-3) 07/06/18 09:34 Ur Squamous Epith Cells 3 /hpf (0-5) 07/06/18 09:34 Urine Bacteria Rare (<OCC) 07/06/18 09:34 Urine Opiates Screen Negative (NEGATIVE) 07/06/18 11:44 Urine Methadone Screen Negative (NEGATIVE) 07/06/18 11:44 Ur Barbiturates Screen Negative (NEGATIVE) 07/06/18 11:44 Ur Phencyclidine Scrn Negative (NEGATIVE) 07/06/18 11:44 Ur Amphetamines Screen Negative (NEGATIVE) 07/06/18 11:44 U Benzodiazepines Scrn Negative (NEGATIVE) 07/06/18 11:44 U Oth Cocaine Metabols Negative (NEGATIVE) 07/06/18 11:44 U Cannabinoids Screen Negative (NEGATIVE) 07/06/18 11:44 - Hospital Course Hospital Course: History and Physical - This is a 58 year old Grenadian speaking female with PMH of gastritis, GERD, arthritis, menierre's disease, sinusitis, anemia who presents with left sided chest and shoulder pain associated with shortness of breath which started yesterday at 1 pm. Chest pain is described as left sternal chest pressure including the left shoulder, nonradiating, intermittent, 9/10 on onset, which started at 1 pm after going up 2 flights of stairs. She describes her SOB as "hard to breath," and associated with left chest wall pain on deep inspiration. She states she took a Meclizine 25 mg PO at 1pm when the pain started, and the pain when away at 230pm. Endorses numbness and tingling of the left third digit at onset of chest pain, which resolved shorty after onset of symptoms. Endorses epigastric abdominal pain as well, which feels like "reflux and gas." She was previously taking Omeprazole until 06/06/18. Endorses Endorses SOB after walking 1 block with palpitations, but unable to quantify for how long she has had this. Palpitations are describes as a fast heart rate. Denies fever, chills, recent illness, headache, blurry vision, visual changes, syncope, fall, trauma, heavy lifting, n/v/d, hematochezia, melena, dysuria, leg pain or swelling, recent travel, car rides longer than 4 hours. Currently, she only endorses the epigastric discomfort. Hospital Course - Patient was admitted to telemetry for chest pain, ACS was ruled out. Troponins were negative x 3. EKG shows NSR at 73 no acute STTW changes. CXR showed no active disease. Echocardiogram showed normal LV function, mild pulmonary hypertension and mild tricuspid regurgitation (see full report). On day of discharge patient stated that she had some mild epigatric discomfort which has improved. She denied any headaches, dizziness, cp, palpitations, sob, urinary symptoms or changes in bowel habits. When asked why she was tearful the day prior she states that her parents some time ago and she was thinking about them. Chest pain was likely musculoskeletal in nature. Patient was medically stable for discharge home. She is to follow up with her PMD within 1 weeks. All questions and concerns were addressed. Discharge Medications: Pepcid 20mg PO daily #30 Discharge Exam - Head Exam Head Exam: ATRAUMATIC, NORMAL INSPECTION - Eye Exam Eye Exam: EOMI, Normal appearance - ENT Exam ENT Exam: Mucous Membranes Moist - Neck Exam Neck exam: Full Rom - Respiratory Exam Respiratory Exam: NORMAL BREATHING PATTERN, UNREMARKABLE - Cardiovascular Exam Cardiovascular Exam: REGULAR RHYTHM, +S1, +S2 - GI/Abdominal Exam GI & Abdominal Exam: Normal Bowel Sounds, Soft. absent: Guarding, Rebound, Rigid, Tenderness - Extremities Exam Extremities exam: pedal pulses present - Neurological Exam Neurological exam: Alert, Normal Gait, Oriented x3 - Psychiatric Exam Psychiatric exam: Normal Affect, Normal Mood - Skin Skin Exam: Dry, Normal Color, Warm Discharge Plan - Discharge Medications Prescriptions: Famotidine [Pepcid] 20 mg PO DAILY #30 tab - Follow Up Plan Condition: STABLE Disposition: HOME/ ROUTINE Instructions: Chest Pain (DC) Additional Instructions: Patient is cleared for discharge home Please follow up with PMD within 1 week If symptoms worsen, return to the emergency department <Tk Go - Last Filed: 07/08/18 09:28> Provider - Provider Date of Admission: 07/06/18 10:30 Attending physician: Tk Go DO Hospital Course - Lab Results Lab Results: Most Recent Lab Values WBC 5.6 K/uL (4.8-10.8) 07/07/18 07:22 RBC 3.87 Mil/uL (3.80-5.20) 07/07/18 07:22 Hgb 12.8 g/dL (11.0-16.0) 07/07/18 07:22 Hct 36.9 % (34.0-47.0) 07/07/18 07:22 MCV 95.3 fL (81.0-99.0) 07/07/18 07:22 MCH 32.9 pg (27.0-31.0) H 07/07/18 07:22 MCHC 34.5 g/dL (33.0-37.0) 07/07/18 07:22 RDW 12.7 % (11.5-14.5) 07/07/18 07:22 Plt Count 228 K/uL (130-400) 07/07/18 07:22 MPV 9.0 fL (7.2-11.7) 07/07/18 07:22 Neut % (Auto) 49.6 % (50.0-75.0) L 07/07/18 07:22 Lymph % (Auto) 36.8 % (20.0-40.0) 07/07/18 07:22 Craven % (Auto) 7.3 % (0.0-10.0) 07/07/18 07:22 Eos % (Auto) 5.2 % (0.0-4.0) H 07/07/18 07:22 Baso % (Auto) 1.1 % (0.0-2.0) 07/07/18 07:22 Neut # (Auto) 2.8 K/uL (1.8-7.0) 07/07/18 07:22 Lymph # (Auto) 2.1 K/uL (1.0-4.3) 07/07/18 07:22 Craven # (Auto) 0.4 K/uL (0.0-0.8) 07/07/18 07:22 Eos # (Auto) 0.3 K/uL (0.0-0.7) 07/07/18 07:22 Baso # (Auto) 0.1 K/uL (0.0-0.2) 07/07/18 07:22 PT 11.6 SECONDS (9.7-12.2) 07/06/18 09:34 INR 1.1 07/06/18 09:34 APTT 33 SECONDS (21-34) 07/06/18 09:34 Sodium 136 mmol/L (132-148) 07/07/18 07:22 Potassium 4.2 mmol/L (3.6-5.2) 07/07/18 07:22 Chloride 100 mmol/L (98-107) 07/07/18 07:22 Carbon Dioxide 30 mmol/L (22-30) 07/07/18 07:22 Anion Gap 9 (10-20) L 07/07/18 07:22 BUN 14 mg/dL (7-17) 07/07/18 07:22 Creatinine 0.8 mg/dL (0.7-1.2) 07/07/18 07:22 Est GFR ( Amer) > 60 07/07/18 07:22 Est GFR (Non-Af Amer) > 60 07/07/18 07:22 Random Glucose 93 mg/dL (65-105) D 07/07/18 07:22 Calcium 9.3 mg/dl (8.6-10.4) 07/07/18 07:22 Phosphorus 3.9 mg/dL (2.5-4.5) 07/07/18 07:22 Magnesium 2.2 mg/dL (1.6-2.3) 07/07/18 07:22 Total Bilirubin 0.5 mg/dL (0.2-1.3) 07/07/18 07:22 AST 28 U/L (14-36) 07/07/18 07:22 ALT 18 U/L (9-52) 07/07/18 07:22 Alkaline Phosphatase 98 U/L (38-126) 07/07/18 07:22 Total Creatine Kinase 79 U/L (30-135) 07/06/18 22:07 CK-MB (Mass) 0.46 ng/mL (0.0-3.38) 07/06/18 22:07 Troponin I < 0.0120 ng/mL (0.00-0.120) 07/06/18 22:07 NT-Pro-B Natriuret Pep 56.8 pg/mL (0-900) 07/06/18 12:08 Total Protein 7.2 g/dL (6.3-8.3) 07/07/18 07:22 Albumin 4.1 g/dL (3.5-5.0) 07/07/18 07:22 Globulin 3.0 gm/dL (2.2-3.9) 07/07/18 07:22 Albumin/Globulin Ratio 1.4 (1.0-2.1) 07/07/18 07:22 Lipase 87 U/L (23-300) 07/06/18 12:08 Urine Color Straw (YELLOW) 07/06/18 09:34 Urine Clarity Clear (Clear) 07/06/18 09:34 Urine pH 8.0 (5.0-8.0) 07/06/18 09:34 Ur Specific Toyah 1.003 (1.003-1.030) 07/06/18 09:34 Urine Protein Negative mg/dL (NEGATIVE) 07/06/18 09:34 Urine Glucose (UA) Normal mg/dL (Normal) 07/06/18 09:34 Urine Ketones Negative mg/dL (NEGATIVE) 07/06/18 09:34 Urine Blood Negative (NEGATIVE) 07/06/18 09:34 Urine Nitrate Negative (NEGATIVE) 07/06/18 09:34 Urine Bilirubin Negative (NEGATIVE) 07/06/18 09:34 Urine Urobilinogen Normal mg/dL (0.2-1.0) 07/06/18 09:34 Ur Leukocyte Esterase Neg Monique/uL (Negative) 07/06/18 09:34 Urine WBC (Auto) < 1 /hpf (0-5) 07/06/18 09:34 Urine RBC (Auto) < 1 /hpf (0-3) 07/06/18 09:34 Ur Squamous Epith Cells 3 /hpf (0-5) 07/06/18 09:34 Urine Bacteria Rare (<OCC) 07/06/18 09:34 Urine Opiates Screen Negative (NEGATIVE) 07/06/18 11:44 Urine Methadone Screen Negative (NEGATIVE) 07/06/18 11:44 Ur Barbiturates Screen Negative (NEGATIVE) 07/06/18 11:44 Ur Phencyclidine Scrn Negative (NEGATIVE) 07/06/18 11:44 Ur Amphetamines Screen Negative (NEGATIVE) 07/06/18 11:44 U Benzodiazepines Scrn Negative (NEGATIVE) 07/06/18 11:44 U Oth Cocaine Metabols Negative (NEGATIVE) 07/06/18 11:44 U Cannabinoids Screen Negative (NEGATIVE) 07/06/18 11:44 Attending/Attestation - Attestation I have personally seen and examined this patient.: Yes I have fully participated in the care of the patient.: Yes I have reviewed all pertinent clinical information, including history, physical exam and plan: Yes Notes (Text): 07/08/18 09:27 Medical attending: Patient was seen and examined by me. Agree with the above note by the resident The patient was not in any acute distress when I came and saw her with the resident Cardiac enzymes negative, she was no longer having the chest pain. Possible this was MSK in nature. Per travel nurse last night the patient was thinking about her own parents who and thats why she was crying Tk Go
== END 2018-07-07 15:20 | disposition home or self-care (01) ==
LOC: C.ER 08:48 → C.9E 10:30 → C.5S 13:46
PROVIDERS: ADMIT Hospitalist; ATTEND Hospitalist
DX: R07.9 Chest pain, unspecified (principal); K21.9 Gastro-esophageal reflux disease without esophagitis
CPT/HCPCS: 36415; 71046; 80053; 80324; 80345; 80346; 80349; 80353; 80358; 80361; 81001; 83690; 83735; 83880; 83992; 84100; 84484; 85025; 85610; 85730; 93306; 99284; G0378; J1644

== ENCOUNTER 2018-07-16 18:33 | Emergency (ER) | payer MEDICAID ==
[2018-07-16 18:33] VITALS: BMI 29.5
--- NOTE | 2018-07-16 20:13 | C.PDOC ---
History Of Present Illness 58 year old female presents to ED with complaint of abdominal pain and nausea that have worsened since 12:30 pm today. Patient also complains of decreased PO intake. Patient denies vomiting , diarrhea, fever, and chills. Time Seen by Provider: 07/16/18 20:13 Chief Complaint (Nursing): Abdominal Pain History Per: Patient History/Exam Limitations: no limitations Onset/Duration Of Symptoms: Hrs (8), Worse Since Current Symptoms Are (Timing): Still Present Location Of Pain/Discomfort: Diffuse Radiation Of Pain To:: None Quality Of Discomfort: "Pain" Associated Symptoms: Nausea. denies: Fever, Chills, Vomiting, Diarrhea Exacerbating Factors: None Alleviating Factors: None Past Medical History Reviewed: Historical Data, Nursing Documentation, Vital Signs Vital Signs: Last Vital Signs Temp 98.6 F 07/16/18 19:03 Pulse 71 07/16/18 19:03 Resp 18 07/16/18 19:03 BP 133/89 07/16/18 19:03 Pulse Ox 100 07/16/18 19:03 - Medical History PMH: Arthritis, Gastritis, GERD Surgical History: No Surg Hx Family History: States: Unknown Family Hx - Social History Hx Alcohol Use: No Hx Substance Use: No - Immunization History Hx Tetanus Toxoid Vaccination: No Hx Influenza Vaccination: Yes (2018) Hx Pneumococcal Vaccination: No Review Of Systems Constitutional: Negative for: Fever, Chills Gastrointestinal: Positive for: Nausea, Abdominal Pain. Negative for: Vomiting, Diarrhea Neurological: Negative for: Weakness, Numbness, Dizziness Physical Exam - Physical Exam Appears: Non-toxic, No Acute Distress Skin: Warm, Dry Head: Normacephalic Eye(s): bilateral: Normal Inspection Oral Mucosa: Moist Neck: Trachea Midline, Supple Chest: Symmetrical Cardiovascular: Rhythm Regular Respiratory: No Rales, No Rhonchi, No Wheezing Gastrointestinal/Abdominal: Distention, Other (tympanic to percussion) Extremity: Bilateral: Normal Color And Temperature Pulses: Left Dorsalis Pedis: Normal, Right Dorsalis Pedis: Normal Neurological/Psych: Oriented x3 Gait: Steady ED Course And Treatment - Laboratory Results Result Diagrams: 07/16/18 20:33 07/16/18 20:33 O2 Sat by Pulse Oximetry: 100 (in RA) Pulse Ox Interpretation: Normal Progress Note: EKG ordered for patient. Labs ordered with CBC, CMP, and UA. Patient given Protonix IVP, IV fluids, and Zofran IVP. Reevaluation Time: 22:36 Reassessment Condition: Improved Medical Decision Making Medical Decision Making: Upon provider reevaluation patient is feeling better, is medically stable, and requires no further treatment in the ED at this time. Patient will be discharged home with Rx for protonix and zofran . Counseling was provided and all questions were answered regarding diagnosis and need for follow up with dr dawson. There is agreement to discharge plan. Return if symptoms persist or worsen. Disposition Counseled Patient/Family Regarding: Studies Performed, Diagnosis, Need For Followup, Rx Given - Disposition Referrals: Pierre Dawson MD [Medical Doctor] - Disposition: HOME/ ROUTINE Disposition Time: 20:13 Condition: FAIR Additional Instructions: Por favor regrese si los sntomas recurren Prescriptions: Ondansetron ODT [Zofran ODT] 1 odt PO BID PRN #6 odt PRN Reason: Nausea/Vomiting Pantoprazole Sodium [Protonix] 40 mg PO DAILY #14 ect Instructions: Acute Abdomen (Belly Pain), Adult (DC) Forms: [employer] (Zimbabwean) Print Language: [place]ER[place] LEONEAN - Clinical Impression Clinical Impression: Abdominal pain, Nausea, Enteritis - Scribe Statement The provider has reviewed the documentation as recorded by the Scribe (Lois Sharif) All medical record entries made by the Scribe were at my direction and personally dictated by me. I have reviewed the chart and agree that the record accurately reflects my personal performance of the history, physical exam, medical decision making, and the department course for this patient. I have also personally directed, reviewed, and agree with the discharge instructions and disposition.
[2018-07-16] MEDS ORDERED: Sodium Chloride 0.9% 1,000 ML IV ONE (20:29)
[2018-07-16 20:41] LABS: BASO # 0.1 K/uL (0.0-0.2); BASO % 0.9 % (0.0-2.0); EOS # 0.3 K/uL (0.0-0.7); EOS % 4.1 % (0.0-4.0); LYMPH # 2.3 K/uL (1.0-4.3); LYMPH % 31.8 % (20.0-40.0); MEAN CELL VOLUME 95.9 fL (81.0-99.0); MEAN CORPUSCULAR HEMOGLOBIN 31.9 pg (27.0-31.0); MEAN CORPUSCULAR HGB CONC 33.2 g/dL (33.0-37.0); MEAN PLATELET VOLUME 8.7 fL (7.2-11.7); MONO # 0.4 K/uL (0.0-0.8); MONO % 5.8 % (0.0-10.0); NEUT # 4.2 K/uL (1.8-7.0); NEUT % 57.4 % (50.0-75.0); RBC 4.08 Mil/uL (3.80-5.20); RED CELL DISTRIBUTION WIDTH 12.8 % (11.5-14.5); WHITE BLOOD COUNT 7.4 K/uL (4.8-10.8)
[2018-07-16 20:43] LABS: SQUAMOUS EPITHIAL 2 /hpf (0-5); URINE BACTERIA RARE (<OCC); URINE BILIRUBIN NEGATIVE (NEGATIVE); URINE BLOOD NEGATIVE (NEGATIVE); URINE CLARITY Clear (Clear); URINE COLOR Straw (YELLOW); URINE GLUCOSE (UA) NORMAL (Normal); URINE LEUKOCYTE ESTERASE 1+ Leu/uL (Negative); URINE PROTEIN NEGATIVE (NEGATIVE); URINE UROBILINOGEN NORMAL mg/dL (0.2-1.0)
[2018-07-16 20:51] LABS: INR 1.1; PROTHROMBIN TIME 11.8 SECONDS (9.7-12.2)
[2018-07-16 21:04] LABS: ALB/GLOB RATIO 1.4 (1.0-2.1); ALBUMIN 4.5 g/dL (3.5-5.0); ALT/SGPT 28 U/L (9-52); AST/SGOT 28 U/L (14-36); BLOOD UREA NITROGEN 12 mg/dL (7-17); CALCIUM 9.9 mg/dl (8.6-10.4); GFR NON-AFRICAN AMERICAN > 60; LIPASE 70 U/L (23-300)
[2018-07-16] MEDS ORDERED: Iohexol 300 100 ML IJ ONE (21:34)
[2018-07-16 22:18] VITALS: BP 116/62; PULSE 67; RESP 18; TEMP 98.2
[2018-07-16 22:39] VITALS: O2SAT 100
--- NOTE | 2018-07-17 09:28 | CT ---
Date of service: 07/16/2018 PROCEDURE: CT Abdomen and Pelvis with intravenous contrast HISTORY: Abdominal pain COMPARISON: None. TECHNIQUE: Multiple contiguous axial images were performed through the abdomen and pelvis with the use of intravenous contrast. Subsequently, sagittal and coronal reformatted images were obtained. Radiation dose: Total exam DLP = 947.55 mGy-cm. This CT exam was performed using one or more of the following dose reduction techniques: Automated exposure control, adjustment of the mA and/or kV according to patient size, and/or use of iterative reconstruction technique. FINDINGS: LOWER THORAX: Scattered areas of consolidation and/or atelectasis seen throughout the lung altamirano. Clinical correlation. LIVER: Few punctate scattered hypodensities in the liver, too small to adequately characterize. GALLBLADDER AND BILE DUCTS: Unremarkable. PANCREAS: Punctate hypodensity near the head of the pancreas on series 3, image 57 measuring 2 millimeters, too small to adequately characterize. This is nonspecific. Correlation with pancreatic protocol CT may be helpful if clinically indicated. SPLEEN: Unremarkable. Splenule. ADRENALS: Unremarkable. No mass. KIDNEYS AND URETERS: Unremarkable. No hydronephrosis. No solid mass. VASCULATURE: Unremarkable. No aortic aneurysm. No aortic atherosclerotic calcification or mural plaque present. BOWEL: Small hiatal hernia. Few thickened and fecalized loops of small bowel seen within the mid abdomen which may represent fecal stasis/bowel stasis. Underlying enteritis can't be excluded. Clinical correlation. Moderate fecal retention in the colon. Redundant sigmoid colon. APPENDIX: Unremarkable. Normal appendix. PERITONEUM: Unremarkable. No free fluid. No free air. LYMPH NODES: Few shotty para-aortic and inguinal lymph nodes. Few shotty mesenteric lymph nodes. BLADDER: Mildly thick-walled urinary bladder which may represent an underlying cystitis. Clinical correlation. REPRODUCTIVE: Unremarkable. BONES: Degenerative changes in the spine and bilateral SI joints. Productive change at the ischial tuberosities bilaterally. OTHER FINDINGS: None. IMPRESSION: 1. Mildly thick-walled urinary bladder which may represent an underlying cystitis. Clinical correlation. 2. Few thickened and fecalized loops of small bowel seen within the mid abdomen which may represent fecal stasis/bowel stasis. Underlying enteritis can't be excluded. Clinical correlation. 3. Moderate fecal retention in the colon. Redundant sigmoid colon. 4. Punctate hypodensity near the head of the pancreas on series 3, image 57 measuring 2 millimeters, too small to adequately characterize. This is nonspecific. Correlation with pancreatic protocol CT may be helpful if clinically indicated. 5. Scattered areas of consolidation and/or atelectasis seen throughout the lung altamirano. Clinical correlation. A preliminary report was generated at 10:34 p.m. on 07/16/[address] Pilo Green from [facility]. This case was placed in the PA review folder.
== END 2018-07-16 22:57 | disposition home or self-care (01) ==
LOC: C.ER 18:33
DX: K52.9 Noninfective gastroenteritis and colitis, unspecified (principal); R10.9 Unspecified abdominal pain; R11.0 Nausea
CPT/HCPCS: 74177; 80053; 81001; 83690; 85025; 85610; 85730; 96361; 96374; 96375; 99285; C9113; J2405; J7030; Q9967

== ENCOUNTER 2018-08-01 01:50 | Emergency (ER) | payer MEDICAID ==
[2018-08-01 01:51] VITALS: BMI 29.5
[2018-08-01 01:52] VITALS: O2SAT 98
[2018-08-01 04:15] LABS: BASO # 0.1 K/uL (0.0-0.2); BASO % 1.1 % (0.0-2.0); EOS # 0.4 K/uL (0.0-0.7); EOS % 4.8 % (0.0-4.0); HEMOGLOBIN 12.4 g/dL (11.0-16.0); LYMPH # 2.6 K/uL (1.0-4.3); LYMPH % 35.6 % (20.0-40.0); MEAN CELL VOLUME 96.1 fL (81.0-99.0); MEAN CORPUSCULAR HEMOGLOBIN 31.9 pg (27.0-31.0); MEAN CORPUSCULAR HGB CONC 33.2 g/dL (33.0-37.0); MEAN PLATELET VOLUME 8.5 fL (7.2-11.7); MONO # 0.5 K/uL (0.0-0.8); MONO % 7.2 % (0.0-10.0); NEUT # 3.7 K/uL (1.8-7.0); NEUT % 51.3 % (50.0-75.0); RBC 3.89 Mil/uL (3.80-5.20); RED CELL DISTRIBUTION WIDTH 12.9 % (11.5-14.5); WHITE BLOOD COUNT 7.3 K/uL (4.8-10.8)
[2018-08-01 04:17] LABS: SQUAMOUS EPITHIAL < 1 /hpf (0-5); URINE BACTERIA RARE (<OCC); URINE BILIRUBIN NEGATIVE (NEGATIVE); URINE CLARITY Clear (Clear); URINE COLOR Straw (YELLOW); URINE GLUCOSE (UA) NORMAL (Normal); URINE LEUKOCYTE ESTERASE NEG Leu/uL (Negative); URINE PROTEIN NEGATIVE (NEGATIVE); URINE UROBILINOGEN NORMAL mg/dL (0.2-1.0)
[2018-08-01 04:28] LABS: BLOOD UREA NITROGEN 11 mg/dL (7-17); GFR NON-AFRICAN AMERICAN > 60
[2018-08-01 04:29] LABS: ALB/GLOB RATIO 1.3 (1.0-2.1); ALBUMIN 4.2 g/dL (3.5-5.0); ALT/SGPT 24 U/L (9-52); AST/SGOT 24 U/L (14-36); CALCIUM 9.4 mg/dl (8.6-10.4); LIPASE 92 U/L (23-300)
[2018-08-01 04:36] LABS: URINE BLOOD TRACE (NEGATIVE)
--- NOTE | 2018-08-01 04:36 | C.PDOC ---
History Of Present Illness 58 year old female presents with epigastric pain described as a burning sensation since 8pm with headache and nausea, now with chills here in the ER. Denies fever, vomiting, URI symptoms, UTI symptoms, or sick contact. Patient was seen on 07/16/18 for similar complaint, had full workup including CT which showed no specific findings. Time Seen by Provider: 08/01/18 02:15 Chief Complaint (Nursing): Abdominal Pain History Per: Patient History/Exam Limitations: no limitations Onset/Duration Of Symptoms: Hrs Current Symptoms Are (Timing): Still Present Location Of Pain/Discomfort: Epigastric Quality Of Discomfort: Burning Associated Symptoms: Chills, Nausea. denies: Fever, Vomiting, Other (Headache. No URI symptoms or UTI symptoms.) Exacerbating Factors: None Recent travel outside of the [place]: No Past Medical History Reviewed: Historical Data, Nursing Documentation, Vital Signs Vital Signs: Last Vital Signs Temp 97.6 F 08/01/18 01:51 Pulse 62 08/01/18 01:51 Resp 18 08/01/18 01:51 BP 120/79 08/01/18 01:51 Pulse Ox 98 08/01/18 01:51 - Medical History PMH: Arthritis, Gastritis, GERD Denies: Chronic Kidney Disease Family History: States: Unknown Family Hx - Social History Hx Alcohol Use: No Hx Substance Use: No - Immunization History Hx Tetanus Toxoid Vaccination: No Hx Influenza Vaccination: Yes (2018) Hx Pneumococcal Vaccination: No Review Of Systems Constitutional: Positive for: Chills. Negative for: Fever ENT: Negative for: Nose Congestion, Throat Pain Respiratory: Negative for: Cough Gastrointestinal: Positive for: Nausea, Abdominal Pain. Negative for: Vomiting Genitourinary: Negative for: Dysuria, Hematuria Neurological: Positive for: Headache Physical Exam - Physical Exam Appears: Non-toxic Skin: Normal Color, Warm Head: Atraumatic, Normacephalic Eye(s): bilateral: Normal Inspection, PERRL, EOMI Ear(s): Bilateral: Normal Nose: Normal Oral Mucosa: Moist Throat: Normal, No Erythema, No Exudate Neck: Normal, Supple Chest: Symmetrical, No Tenderness Cardiovascular: Rhythm Regular Respiratory: Normal Breath Sounds, No Rales, No Rhonchi, No Wheezing Gastrointestinal/Abdominal: Soft, Tenderness (Epigastric), No Guarding, No Rebound Neurological/Psych: Oriented x3, Normal Speech ED Course And Treatment - Laboratory Results Result Diagrams: 08/01/18 04:12 08/01/18 03:00 Lab Results: Total Bilirubin 0.4 mg/dL (0.2-1.3) 08/01/18 03:00 AST 24 U/L (14-36) 08/01/18 03:00 ALT 24 U/L (9-52) 08/01/18 03:00 Alkaline Phosphatase 92 U/L (38-126) 08/01/18 03:00 Total Protein 7.5 g/dL (6.3-8.3) 08/01/18 03:00 Albumin 4.2 g/dL (3.5-5.0) 08/01/18 03:00 Globulin 3.3 gm/dL (2.2-3.9) 08/01/18 03:00 Albumin/Globulin Ratio 1.3 (1.0-2.1) 08/01/18 03:00 Lipase 92 U/L (23-300) 08/01/18 03:00 Urine HCG, Qual Negative (NEGATIVE) 08/01/18 03:01 Urine HCG, Qual Negative (NEGATIVE) 08/01/18 03:01 O2 Sat by Pulse Oximetry: 98 (room air) Pulse Ox Interpretation: Normal Progress Note: Blood work and UA ordered, results were negative. Pepcid, tylenol and zofran administered. Patient is resting comfortably in no acute distress, to lerating PO, vitals are stable, abdomen is soft, will discharge home with Rx and instructions to follow up with PMD. Disposition Counseled Patient/Family Regarding: Diagnosis, Need For Followup, Rx Given - Disposition Referrals: Janine Hernández MD [Medical Doctor] - Disposition: HOME/ ROUTINE Disposition Time: 05:14 Condition: STABLE Additional Instructions: Increase PO fluids Liquid to soft diet Continue pepcid tylenol for pain Return to ER if worse Instructions: Gastritis (DC) Forms: [employer] (Pashto) Print Language: BANGLADESHI - Clinical Impression Clinical Impression: Gastritis, Abdominal pain - PA / [employer] / Resident Statement MD/DO has reviewed & agrees with the documentation as recorded. - Scribe Statement The provider has reviewed the documentation as recorded by the Scribe Justino Figueroa All medical record entries made by the Scribe were at my direction and personally dictated by me. I have reviewed the chart and agree that the record accurately reflects my personal performance of the history, physical exam, medical decision making, and the department course for this patient. I have also personally directed, reviewed, and agree with the discharge instructions and disposition.
[2018-08-01 05:18] VITALS: BP 98/68; PULSE 85; RESP 20; TEMP 98.2
== END 2018-08-01 05:39 | disposition home or self-care (01) ==
LOC: C.ER 01:50
DX: K29.70 Gastritis, unspecified, without bleeding (principal); R10.9 Unspecified abdominal pain
CPT/HCPCS: 80053; 81001; 83690; 84703; 85025; 96374; 96375; 99284; J2405

== ENCOUNTER 2018-08-10 04:32 | Observation (INO) | payer MEDICAID ==
[2018-08-10 04:32] VITALS: BMI 29.5
--- NOTE | 2018-08-10 05:00 | C.PDOC ---
History Of Present Illness 58 year old female presents to the ED c/o left sided chest pain associated with SOB that woke up from sleep at 03:00. Patient denies fever, chills, headache, visual changes, neck pain, palpitations. Time Seen by Provider: 08/10/18 04:54 Chief Complaint (Nursing): Chest Pain History Per: Patient History/Exam Limitations: no limitations Onset/Duration Of Symptoms: Hrs (03:00) Current Symptoms Are (Timing): Still Present Quality: "Pain" Exacerbating Factors: Deep Breathing Recent travel outside of the [place]: No Additional History Per: Patient Past Medical History Reviewed: Historical Data, Nursing Documentation, Vital Signs Vital Signs: Last Vital Signs Temp 97.7 F 08/10/18 04:42 Pulse 69 08/10/18 04:42 Resp 16 08/10/18 04:42 BP 110/78 08/10/18 04:42 Pulse Ox 99 08/10/18 04:42 - Medical History PMH: Arthritis, Gastritis, GERD Denies: Chronic Kidney Disease Surgical History: No Surg Hx Family History: States: Unknown Family Hx - Social History Hx Alcohol Use: No Hx Substance Use: No - Immunization History Hx Tetanus Toxoid Vaccination: No Hx Influenza Vaccination: Yes (2018) Hx Pneumococcal Vaccination: No Review Of Systems Constitutional: Negative for: Fever, Chills Eyes: Negative for: Vision Change Cardiovascular: Positive for: Chest Pain. Negative for: Palpitations Respiratory: Positive for: Shortness of Breath. Negative for: Cough Gastrointestinal: Negative for: Nausea, Vomiting, Abdominal Pain Skin: Negative for: Rash Neurological: Negative for: Weakness, Numbness, Headache, Dizziness Physical Exam - Physical Exam Appears: Non-toxic, No Acute Distress Skin: Normal Color, Warm, Dry, No Rash Head: Atraumatic, Normacephalic Eye(s): bilateral: Normal Inspection Neck: Normal ROM, Supple Chest: Symmetrical, Tenderness (left sided anterior wall) Cardiovascular: Rhythm Regular Respiratory: Normal Breath Sounds, No Rales, No Rhonchi, No Wheezing Gastrointestinal/Abdominal: Soft, No Tenderness Extremity: Normal ROM, No Tenderness, No Swelling Neurological/Psych: Oriented x3, Normal Speech, Normal Cognition Gait: Steady ED Course And Treatment - Laboratory Results Result Diagrams: 08/10/18 05:18 08/10/18 05:18 ECG: Interpreted By Me, Viewed By Me ECG Rhythm: Sinus Rhythm, R BBB (incomplete) Rate From EC (BPM) O2 Sat by Pulse Oximetry: 99 (ON RA) Pulse Ox Interpretation: Normal Progress Note: Plan: - EKG. - Labs - neg 1st set of enzymes, neg Ddimer. - CXR. - aspirin 325 mg PO. - UA - Physician Consult Information Physician Contacted: Jonah Girard Outcome Of Conversation: accepted to tele for observation Disposition - Disposition Disposition: HOSPITALIZED Disposition Time: 06:43 Condition: FAIR Forms: [employer] (Palestinian) - Clinical Impression Clinical Impression: Chest pain - PA / FLOOR LAYER TILE / Resident Statement MD/DO has reviewed & agrees with the documentation as recorded. - Scribe Statement The provider has reviewed the documentation as recorded by the Scribe Faheem Dowd All medical record entries made by the Scribe were at my direction and personally dictated by me. I have reviewed the chart and agree that the record accurately reflects my personal performance of the history, physical exam, medical decision making, and the department course for this patient. I have also personally directed, reviewed, and agree with the discharge instructions and disposition. Decision To Admit - Pt Status Changed To: Hospital Disposition Of: Observation - . Bed Request Type: Telemetry Admitting Physician: Jonah Girard Patient Diagnosis: Chest pain
[2018-08-10 05:22] LABS: BASO # 0.1 K/uL (0.0-0.2); EOS # 0.3 K/uL (0.0-0.7); EOS % 5.1 % (0.0-4.0); HEMOGLOBIN 12.5 g/dL (11.0-16.0); LYMPH # 2.3 K/uL (1.0-4.3); LYMPH % 36.8 % (20.0-40.0); MEAN CELL VOLUME 95.3 fL (81.0-99.0); MEAN CORPUSCULAR HEMOGLOBIN 31.9 pg (27.0-31.0); MEAN CORPUSCULAR HGB CONC 33.5 g/dL (33.0-37.0); MEAN PLATELET VOLUME 8.9 fL (7.2-11.7); MONO # 0.5 K/uL (0.0-0.8); NEUT % 49.1 % (50.0-75.0); RBC 3.92 Mil/uL (3.80-5.20); WHITE BLOOD COUNT 6.2 K/uL (4.8-10.8)
[2018-08-10 05:30] LABS: INR 1.1; PROTHROMBIN TIME 11.8 SECONDS (9.7-12.2)
[2018-08-10 05:49] LABS: ALB/GLOB RATIO 1.4 (1.0-2.1); ALBUMIN 4.4 g/dL (3.5-5.0); ALT/SGPT 25 U/L (9-52); AST/SGOT 25 U/L (14-36); BLOOD UREA NITROGEN 11 mg/dL (7-17); CALCIUM 9.5 mg/dl (8.6-10.4); GFR NON-AFRICAN AMERICAN > 60
[2018-08-10 06:01] LABS: CK-MB 0.54 ng/mL (0.0-3.38)
[2018-08-10 06:12] LABS: SQUAMOUS EPITHIAL < 1 /hpf (0-5); URINE BILIRUBIN NEGATIVE (NEGATIVE); URINE BLOOD NEGATIVE (NEGATIVE); URINE CLARITY Clear (Clear); URINE COLOR Straw (YELLOW); URINE GLUCOSE (UA) NORMAL (Normal); URINE LEUKOCYTE ESTERASE NEG Leu/uL (Negative); URINE PROTEIN NEGATIVE (NEGATIVE); URINE UROBILINOGEN NORMAL mg/dL (0.2-1.0)
[2018-08-10 08:02] VITALS: RESP 20
--- NOTE | 2018-08-10 08:28 | RAD ---
Date of service: 08/10/2018 PROCEDURE: CHEST RADIOGRAPH, 1 VIEW HISTORY: SOB, CP COMPARISON: 07/06/2018 FINDINGS: LUNGS: Clear. PLEURA: No pneumothorax or pleural fluid seen. CARDIOVASCULAR: No aortic atherosclerotic calcification present. Normal. OSSEOUS STRUCTURES: No significant abnormalities. VISUALIZED UPPER ABDOMEN: Normal. OTHER FINDINGS: None. IMPRESSION: No active disease.
[2018-08-10] MEDS: Enoxaparin 40 mg Syringe SC SCH (09:47)
[2018-08-10] MEDS: Multiple Vitamins Tab PO SCH (09:47)
[2018-08-10 14:04] LABS: CK-MB 0.76 ng/mL (0.0-3.38)
[2018-08-10 18:39] LABS: HDL CHOLESTEROL 44 mg/dL (30-70)
[2018-08-10 18:49] LABS: LDL CHOLESTEROL 101 mg/dL (0-129)
[2018-08-10] MEDS: Aluminum Hydroxide/Magnesium Hydroxide Susp (30 mL) PO SCH (20:54)
--- NOTE | 2018-08-10 21:06 | CP.PCM.CON ---
History of Present Illness - History of Present Illness History of Present Illness: CC: Chest Pain 58 year old female presents to the ED c/o left sided chest pain Chest pain non exertional and reproducible Chief Complaint : Chest Pain History Per: Patient History/Exam Limitations: no limitations Onset/Duration Of Symptoms: Hrs (03:00) Current Symptoms Are (Timing): Still Present Quality: "Pain" Exacerbating Factors: Deep Breathing Recent travel outside of the [place]: No Additional History Per: Patient Past Medical History Reviewed: Historical Data, Nursing Documentation, Vital Signs Vital Signs: Last Vital Signs Temp 97.7 F 08/10/18 04:42 Pulse 69 08/10/18 04:42 Resp 16 08/10/18 04:42 BP 110/78 08/10/18 04:42 Pulse Ox 99 08/10/18 04:42 - Medical History PMH: Arthritis, Gastritis, GERD Denies: Chronic Kidney Disease Surgical History: No Surg Hx Family History: States: Unknown Family Hx - Social History Hx Alcohol Use: No Hx Substance Use: No - Immunization History Hx Tetanus Toxoid Vaccination: No Hx Influenza Vaccination: Yes (2018) Hx Pneumococcal Vaccination: No Review Of Systems Constitutional: Negative for: Fever, Chills Eyes: Negative for: Vision Change Cardiovascular: Positive for: Chest Pain. Negative for: Palpitations Respiratory: Positive for: Shortness of Breath. Negative for: Cough Gastrointestinal: Negative for: Nausea, Vomiting, Abdominal Pain Skin: Negative for: Rash Neurological: Negative for: Weakness, Numbness, Headache, Dizziness Physical Exam - Physical Exam Appears: Non-toxic, No Acute Distress Skin: Normal Color, Warm, Dry, No Rash Head: Atraumatic, Normacephalic Eye(s): bilateral: Normal Inspection Neck: Normal ROM, Supple Chest: Symmetrical, Tenderness (left sided anterior wall) Cardiovascular: Rhythm Regular Respiratory: Normal Breath Sounds, No Rales, No Rhonchi, No Wheezing Gastrointestinal/Abdominal: Soft, No Tenderness Extremity: Normal ROM, No Tenderness, No Swelling Neurological/Psych: Oriented x3, Normal Speech, Normal Cognition Gait: Steady Past Patient History - Infectious Disease Hx of Infectious Diseases: None - Past Social History Smoking Status: Never Smoked - CARDIAC Hx Cardiac Disorders: No - PULMONARY Hx Respiratory Disorders: No - NEUROLOGICAL Hx Neurological Disorder: Yes Hx Vertigo: Yes - HEENT Hx HEENT Problems: No - RENAL Hx Chronic Kidney Disease: No - ENDOCRINE/METABOLIC Hx Endocrine Disorders: No - HEMATOLOGICAL/ONCOLOGICAL Hx Blood Disorders: No - INTEGUMENTARY Hx Dermatological Problems: No - MUSCULOSKELETAL/RHEUMATOLOGICAL Hx Arthritis: Yes - GASTROINTESTINAL Hx Gastritis: Yes - GENITOURINARY/GYNECOLOGICAL Hx Genitourinary Disorders: No - PSYCHIATRIC Hx Substance Use: No - SURGICAL HISTORY Hx Surgeries: Yes (SEE COMMENT) Hx Section: Yes (x2 (1983,1987)) - ANESTHESIA Hx Anesthesia: Yes Hx Anesthesia Reactions: No Meds Home Medications: Home Medication List Medication Instructions Recorded Confirmed Type Aspirin [Ecotrin] 81 mg PO DAILY tabec 08/11/18 Rx Allergies/Adverse Reactions: Allergies Allergy/AdvReac Type Severity Reaction Status Date / Time Penicillins Allergy RASH Verified 08/01/18 02:06 - Medications Medications: Current Medications Al Hydrox/Mg Hydrox/Simethicone (Maalox 30 Ml) 30 ml PO BID [facility] Last Admin: 08/10/18 20:54 Dose: 30 ml Aspirin (Ecotrin) 81 mg PO DAILY [facility] Enoxaparin Sodium (Lovenox) 40 mg SC DAILY [facility] Last Admin: 08/10/18 09:47 Dose: 40 mg Famotidine (Pepcid) 20 mg PO DAILY [facility] Last Admin: 08/10/18 09:47 Dose: 20 mg Multivitamins (Hexavitamin) 1 tab PO DAILY [facility] Last Admin: 08/10/18 09:47 Dose: 1 tab Rosuvastatin Calcium (Crestor) 5 mg PO HS [facility] Results - Vital Signs Recent Vital Signs: Last Vital Signs Temp 98.5 F 08/10/18 15:00 Pulse 73 08/10/18 15:00 Resp 20 08/10/18 15:00 BP 106/71 08/10/18 15:00 Pulse Ox 98 08/10/18 15:00 - Labs Result Diagrams: 08/10/18 05:18 08/10/18 05:18 Labs: Laboratory Results - last 24 hr 08/10/18 08/10/18 08/10/18 05:18 05:18 05:18 WBC 6.2 RBC 3.92 Hgb 12.5 Hct 37.4 MCV 95.3 MCH 31.9 H MCHC 33.5 RDW 13.0 Plt Count 219 MPV 8.9 Neut % (Auto) 49.1 L Lymph % (Auto) 36.8 [place] % (Auto) 8.0 Eos % (Auto) 5.1 H Baso % (Auto) 1.0 Neut # (Auto) 3.0 Lymph # (Auto) 2.3 [place] # (Auto) 0.5 Eos # (Auto) 0.3 Baso # (Auto) 0.1 PT 11.8 INR 1.1 APTT 30.0 D-Dimer, Quantitative 230 Sodium 139 Potassium 3.9 Chloride 103 Carbon Dioxide 29 Anion Gap 11 BUN 11 Creatinine 0.6 L Est GFR ( Amer) > 60 Est GFR (Non-Af Amer) > 60 Random Glucose 94 Calcium 9.5 Total Bilirubin 0.4 AST 25 ALT 25 Alkaline Phosphatase 94 Total Creatine Kinase 102 CK-MB (Mass) 0.54 Troponin I < 0.0120 Total Protein 7.4 Albumin 4.4 Globulin 3.1 Albumin/Globulin Ratio 1.4 Triglycerides Cholesterol LDL Cholesterol Direct HDL Cholesterol Urine Color Urine Clarity Urine pH Ur Specific [place] Urine Protein Urine Glucose (UA) Urine Ketones Urine Blood Urine Nitrate Urine Bilirubin Urine Urobilinogen Ur Leukocyte Esterase Urine WBC (Auto) Urine RBC (Auto) Ur Squamous Epith Cells 08/10/18 08/10/18 08/10/18 06:05 13:21 13:21 WBC RBC Hgb Hct MCV MCH MCHC RDW Plt Count MPV Neut % (Auto) Lymph % (Auto) [place] % (Auto) Eos % (Auto) Baso % (Auto) Neut # (Auto) Lymph # (Auto) [place] # (Auto) Eos # (Auto) Baso # (Auto) PT INR APTT D-Dimer, Quantitative Sodium Potassium Chloride Carbon Dioxide Anion Gap BUN Creatinine Est GFR ( Amer) Est GFR (Non-Af Amer) Random Glucose Calcium Total Bilirubin AST ALT Alkaline Phosphatase Total Creatine Kinase 102 CK-MB (Mass) 0.76 Troponin I < 0.0120 Total Protein Albumin Globulin Albumin/Globulin Ratio Triglycerides 84 Cholesterol 169 LDL Cholesterol Direct 101 HDL Cholesterol 44 Urine Color Straw Urine Clarity Clear Urine pH 7.0 Ur Specific [place] 1.002 L Urine Protein Negative Urine Glucose (UA) Normal Urine Ketones Negative Urine Blood Negative Urine Nitrate Negative Urine Bilirubin Negative Urine Urobilinogen Normal Ur Leukocyte Esterase Neg Urine WBC (Auto) < 1 Urine RBC (Auto) < 1 Ur Squamous Epith Cells < 1 Assessment & Plan - Assessment and Plan (Free Text) Assessment: Reproducible chest pain EKG: Uneventful Trop x 1 negative Will follow
[2018-08-10 21:41] LABS: CK-MB 0.29 ng/mL (0.0-3.38)
--- NOTE | 2018-08-10 23:04 | CP.PCM.HP ---
Present on Admission - Present on Admission Any Indicators Present on Admission: No Past Patient History - Infectious Disease Hx of Infectious Diseases: None - Past Social History Smoking Status: Never Smoked - CARDIAC Hx Cardiac Disorders: No - PULMONARY Hx Respiratory Disorders: No - NEUROLOGICAL Hx Neurological Disorder: Yes Hx Vertigo: Yes - HEENT Hx HEENT Problems: No - RENAL Hx Chronic Kidney Disease: No - ENDOCRINE/METABOLIC Hx Endocrine Disorders: No - HEMATOLOGICAL/ONCOLOGICAL Hx Blood Disorders: No - INTEGUMENTARY Hx Dermatological Problems: No - MUSCULOSKELETAL/RHEUMATOLOGICAL Hx Arthritis: Yes - GASTROINTESTINAL Hx Gastritis: Yes - GENITOURINARY/GYNECOLOGICAL Hx Genitourinary Disorders: No - PSYCHIATRIC Hx Substance Use: No - SURGICAL HISTORY Hx Surgeries: Yes (SEE COMMENT) Hx Section: Yes (x2 (1983,1987)) - ANESTHESIA Hx Anesthesia: Yes Hx Anesthesia Reactions: No Meds Allergies/Adverse Reactions: Allergies Allergy/AdvReac Type Severity Reaction Status Date / Time Penicillins Allergy RASH Verified 08/01/18 02:06 Results - Vital Signs Recent Vital Signs: Last Vital Signs Temp 98.5 F 08/10/18 15:00 Pulse 73 08/10/18 15:00 Resp 20 08/10/18 15:00 BP 106/71 08/10/18 15:00 Pulse Ox 98 08/10/18 15:00 - Labs Result Diagrams: 08/10/18 05:18 08/10/18 05:18 Labs: Laboratory Results - last 24 hr 08/10/18 08/10/18 08/10/18 05:18 05:18 05:18 WBC 6.2 RBC 3.92 Hgb 12.5 Hct 37.4 MCV 95.3 MCH 31.9 H MCHC 33.5 RDW 13.0 Plt Count 219 MPV 8.9 Neut % (Auto) 49.1 L Lymph % (Auto) 36.8 [place] % (Auto) 8.0 Eos % (Auto) 5.1 H Baso % (Auto) 1.0 Neut # (Auto) 3.0 Lymph # (Auto) 2.3 [place] # (Auto) 0.5 Eos # (Auto) 0.3 Baso # (Auto) 0.1 PT 11.8 INR 1.1 APTT 30.0 D-Dimer, Quantitative 230 Sodium 139 Potassium 3.9 Chloride 103 Carbon Dioxide 29 Anion Gap 11 BUN 11 Creatinine 0.6 L Est GFR ( Amer) > 60 Est GFR (Non-Af Amer) > 60 Random Glucose 94 Calcium 9.5 Total Bilirubin 0.4 AST 25 ALT 25 Alkaline Phosphatase 94 Total Creatine Kinase 102 CK-MB (Mass) 0.54 Troponin I < 0.0120 Total Protein 7.4 Albumin 4.4 Globulin 3.1 Albumin/Globulin Ratio 1.4 Triglycerides Cholesterol LDL Cholesterol Direct HDL Cholesterol Urine Color Urine Clarity Urine pH Ur Specific [place] Urine Protein Urine Glucose (UA) Urine Ketones Urine Blood Urine Nitrate Urine Bilirubin Urine Urobilinogen Ur Leukocyte Esterase Urine WBC (Auto) Urine RBC (Auto) Ur Squamous Epith Cells 08/10/18 08/10/18 08/10/18 06:05 13:21 13:21 WBC RBC Hgb Hct MCV MCH MCHC RDW Plt Count MPV Neut % (Auto) Lymph % (Auto) [place] % (Auto) Eos % (Auto) Baso % (Auto) Neut # (Auto) Lymph # (Auto) [place] # (Auto) Eos # (Auto) Baso # (Auto) PT INR APTT D-Dimer, Quantitative Sodium Potassium Chloride Carbon Dioxide Anion Gap BUN Creatinine Est GFR ( Amer) Est GFR (Non-Af Amer) Random Glucose Calcium Total Bilirubin AST ALT Alkaline Phosphatase Total Creatine Kinase 102 CK-MB (Mass) 0.76 Troponin I < 0.0120 Total Protein Albumin Globulin Albumin/Globulin Ratio Triglycerides 84 Cholesterol 169 LDL Cholesterol Direct 101 HDL Cholesterol 44 Urine Color Straw Urine Clarity Clear Urine pH 7.0 Ur Specific [place] 1.002 L Urine Protein Negative Urine Glucose (UA) Normal Urine Ketones Negative Urine Blood Negative Urine Nitrate Negative Urine Bilirubin Negative Urine Urobilinogen Normal Ur Leukocyte Esterase Neg Urine WBC (Auto) < 1 Urine RBC (Auto) < 1 Ur Squamous Epith Cells < 1 08/10/18 21:05 WBC RBC Hgb Hct MCV MCH MCHC RDW Plt Count MPV Neut % (Auto) Lymph % (Auto) [place] % (Auto) Eos % (Auto) Baso % (Auto) Neut # (Auto) Lymph # (Auto) [place] # (Auto) Eos # (Auto) Baso # (Auto) PT INR APTT D-Dimer, Quantitative Sodium Potassium Chloride Carbon Dioxide Anion Gap BUN Creatinine Est GFR ( Amer) Est GFR (Non-Af Amer) Random Glucose Calcium Total Bilirubin AST ALT Alkaline Phosphatase Total Creatine Kinase 83 CK-MB (Mass) 0.29 Troponin I < 0.0120 Total Protein Albumin Globulin Albumin/Globulin Ratio Triglycerides Cholesterol LDL Cholesterol Direct HDL Cholesterol Urine Color Urine Clarity Urine pH Ur Specific [place] Urine Protein Urine Glucose (UA) Urine Ketones Urine Blood Urine Nitrate Urine Bilirubin Urine Urobilinogen Ur Leukocyte Esterase Urine WBC (Auto) Urine RBC (Auto) Ur Squamous Epith Cells
--- NOTE | 2018-08-11 04:43 | HP ---
CHIEF COMPLAINT: Chest pain x1 day. HISTORY OF PRESENT ILLNESS: This is a 58-year-old female, who is a nonsmoker, non-diabetic, non-hypertensive, non-hyperlipidemic, who has no past medical history except for . She came in because of substernal chest pain, dull, , non-radiating, not associated with diaphoresis or dizziness. The patient had dyspepsia. No nausea, vomiting, or diarrhea. She denies any history of polyuria, polydipsia, or polyphagia. She denies any history of change in chest pain with position. She denies any history of any chest pain, worsened by deep inspiration. No history of cough, sore throat, or runny nose. There is no history of trauma, fall, or loss of consciousness. There is no history of dizziness, vertigo. There is no history of joint pain or hip cassidy. She denies any history of tingling, numbness, or paresthesia. There is no history of seizure-like activities. There is no history of loss of consciousness. PAST MEDICAL HISTORY: Arthritis. SOCIAL HISTORY: She is nonsmoker, non-ETOH user. CURRENT MEDICATIONS: She is on Pepcid, meclizine, and multivitamin. PHYSICAL EXAMINATION: GENERAL: A middle-aged female, in no acute distress. VITAL SIGNS: Blood pressure 105/60, pulse 71, respiratory rate 20, and temperature 98. SKIN: No rashes. No bruises. HEENT: Atraumatic and normocephalic. Negative pallor and negative jaundice. Extraocular movements are intact. NECK: Supple. No JVD. No lymph node. No thyromegaly. No carotid bruits. CHEST WALL: Bilateral symmetrical expansion. No tenderness. No deformity. LUNGS: Clear. No rales. No rhonchi. CARDIOVASCULAR SYSTEM: PMI not localized. S1 and S2 regular. No heave. No thrill. ABDOMEN: Soft and nontender. Bowel sounds are positive. EXTREMITIES: No clubbing, cyanosis, or edema. CENTRAL NERVOUS SYSTEM: Awake, alert, and oriented x3. Cranial nerves II through XII are normal. Power is 5/5 x4. Plantars are downgoing. Normal. ASSESSMENT: 1. Chest pain, atypical, rule out myocardial infarction, most likely it is acid reflux. 2. Rule out hyperlipidemia. PLAN: Admit. Detailed orders are written. Seen and examined. Jonah Girard MD
[2018-08-11 07:45] VITALS: BP 105/70; PULSE 65; TEMP 97.9; O2SAT 94
[2018-08-11] MEDS: Enoxaparin 40 mg Syringe SC SCH (09:01)
[2018-08-11] MEDS: Aluminum Hydroxide/Magnesium Hydroxide Susp (30 mL) PO SCH (09:01)
[2018-08-11] MEDS: Multiple Vitamins Tab PO SCH (09:02)
--- NOTE | 2018-08-11 16:18 | CP.PCM.PN ---
Subjective - Date & Time of Evaluation Date of Evaluation: 08/11/18 Time of Evaluation: 11:15 - Subjective Subjective: Patient seen and examined today denies any chest pain, sob, palpitations vss stab;e No overnight events reported by RN Objective - Vital Signs/Intake and Output Vital Signs (last 24 hours): Temp Pulse Resp BP Pulse Ox 97.9 F 65 20 105/70 94 L 08/11/18 07:00 08/11/18 07:00 08/11/18 07:00 08/11/18 07:00 08/11/18 07:00 - Medications Medications: Current Medications Al Hydrox/Mg Hydrox/Simethicone (Maalox 30 Ml) 30 ml PO BID [facility] Last Admin: 08/11/18 09:01 Dose: 30 ml Aspirin (Ecotrin) 81 mg PO DAILY [facility] Last Admin: 08/11/18 09:04 Dose: 81 mg Enoxaparin Sodium (Lovenox) 40 mg SC DAILY [facility] Last Admin: 08/11/18 09:01 Dose: 40 mg Famotidine (Pepcid) 20 mg PO DAILY [facility] Last Admin: 08/11/18 09:01 Dose: 20 mg Multivitamins (Hexavitamin) 1 tab PO DAILY [facility] Last Admin: 08/11/18 09:02 Dose: 1 tab Rosuvastatin Calcium (Crestor) 5 mg PO HS [facility] Last Admin: 08/10/18 21:19 Dose: 5 mg - Labs Labs: 08/10/18 05:18 08/10/18 05:18 PT 11.8 SECONDS (9.7-12.2) 08/10/18 05:18 INR 1.1 08/10/18 05:18 APTT 30.0 SECONDS (21-34) 08/10/18 05:18 Assessment and Plan - Assessment and Plan (Free Text) Assessment: A/P 58 year old female with pmhx of GERD presents to the ED c/o left sided chest pain associated with SOB troponin x 3- negative echo - done 07/06/18 - normal EF seen by Dr. Girard, cleared for discharge home today and f/u with PMD and Dr. ferraro office discharge plan discussed with patient who understands and agrees with plan
--- NOTE | 2018-08-11 20:35 | CP.PCM.DIS ---
Provider - Provider Date of Admission: 08/10/18 06:42 Attending physician: Jonah Girard MD Consults: 08/10/18 18:10 Cardiology Consult Routine Comment: Consulting Provider: Pilo Nathan Consulting Physician: Pilo Nathan Reason for Consult: acs Time Spent in preparation of Discharge (in minutes): 30 Hospital Course - Lab Results Lab Results: Most Recent Lab Values WBC 6.2 K/uL (4.8-10.8) 08/10/18 05:18 RBC 3.92 Mil/uL (3.80-5.20) 08/10/18 05:18 Hgb 12.5 g/dL (11.0-16.0) 08/10/18 05:18 Hct 37.4 % (34.0-47.0) 08/10/18 05:18 MCV 95.3 fL (81.0-99.0) 08/10/18 05:18 MCH 31.9 pg (27.0-31.0) H 08/10/18 05:18 MCHC 33.5 g/dL (33.0-37.0) 08/10/18 05:18 RDW 13.0 % (11.5-14.5) 08/10/18 05:18 Plt Count 219 K/uL (130-400) 08/10/18 05:18 MPV 8.9 fL (7.2-11.7) 08/10/18 05:18 Neut % (Auto) 49.1 % (50.0-75.0) L 08/10/18 05:18 Lymph % (Auto) 36.8 % (20.0-40.0) 08/10/18 05:18 [place] % (Auto) 8.0 % (0.0-10.0) 08/10/18 05:18 Eos % (Auto) 5.1 % (0.0-4.0) H 08/10/18 05:18 Baso % (Auto) 1.0 % (0.0-2.0) 08/10/18 05:18 Neut # (Auto) 3.0 K/uL (1.8-7.0) 08/10/18 05:18 Lymph # (Auto) 2.3 K/uL (1.0-4.3) 08/10/18 05:18 [place] # (Auto) 0.5 K/uL (0.0-0.8) 08/10/18 05:18 Eos # (Auto) 0.3 K/uL (0.0-0.7) 08/10/18 05:18 Baso # (Auto) 0.1 K/uL (0.0-0.2) 08/10/18 05:18 PT 11.8 SECONDS (9.7-12.2) 08/10/18 05:18 INR 1.1 08/10/18 05:18 APTT 30.0 SECONDS (21-34) 08/10/18 05:18 D-Dimer, Quantitative 230 ng/mlDDU (0-243) 08/10/18 05:18 Sodium 139 mmol/L (132-148) 08/10/18 05:18 Potassium 3.9 mmol/L (3.6-5.2) 08/10/18 05:18 Chloride 103 mmol/L (98-107) 08/10/18 05:18 Carbon Dioxide 29 mmol/L (22-30) 08/10/18 05:18 Anion Gap 11 (10-20) 08/10/18 05:18 BUN 11 mg/dL (7-17) 08/10/18 05:18 Creatinine 0.6 mg/dL (0.7-1.2) L 08/10/18 05:18 Est GFR ( Amer) > 60 08/10/18 05:18 Est GFR (Non-Af Amer) > 60 08/10/18 05:18 Random Glucose 94 mg/dL (65-105) 08/10/18 05:18 Calcium 9.5 mg/dl (8.6-10.4) 08/10/18 05:18 Total Bilirubin 0.4 mg/dL (0.2-1.3) 08/10/18 05:18 AST 25 U/L (14-36) 08/10/18 05:18 ALT 25 U/L (9-52) 08/10/18 05:18 Alkaline Phosphatase 94 U/L (38-126) 08/10/18 05:18 Total Creatine Kinase 83 U/L (30-135) 08/10/18 21:05 CK-MB (Mass) 0.29 ng/mL (0.0-3.38) 08/10/18 21:05 Troponin I < 0.0120 ng/mL (0.00-0.120) 08/10/18 21:05 Total Protein 7.4 g/dL (6.3-8.3) 08/10/18 05:18 Albumin 4.4 g/dL (3.5-5.0) 08/10/18 05:18 Globulin 3.1 gm/dL (2.2-3.9) 08/10/18 05:18 Albumin/Globulin Ratio 1.4 (1.0-2.1) 08/10/18 05:18 Triglycerides 84 mg/dL (0-149) 08/10/18 13:21 Cholesterol 169 mg/dL (0-199) 08/10/18 13:21 LDL Cholesterol Direct 101 mg/dL (0-129) 08/10/18 13:21 HDL Cholesterol 44 mg/dL (30-70) 08/10/18 13:21 Urine Color Straw (YELLOW) 08/10/18 06:05 Urine Clarity Clear (Clear) 08/10/18 06:05 Urine pH 7.0 (5.0-8.0) 08/10/18 06:05 Ur Specific [place] 1.002 (1.003-1.030) L 08/10/18 06:05 Urine Protein Negative mg/dL (NEGATIVE) 08/10/18 06:05 Urine Glucose (UA) Normal mg/dL (Normal) 08/10/18 06:05 Urine Ketones Negative mg/dL (NEGATIVE) 08/10/18 06:05 Urine Blood Negative (NEGATIVE) 08/10/18 06:05 Urine Nitrate Negative (NEGATIVE) 08/10/18 06:05 Urine Bilirubin Negative (NEGATIVE) 08/10/18 06:05 Urine Urobilinogen Normal mg/dL (0.2-1.0) 08/10/18 06:05 Ur Leukocyte Esterase Neg [place]/uL (Negative) 08/10/18 06:05 Urine WBC (Auto) < 1 /hpf (0-5) 08/10/18 06:05 Urine RBC (Auto) < 1 /hpf (0-3) 08/10/18 06:05 Ur Squamous Epith Cells < 1 /hpf (0-5) 08/10/18 06:05 Discharge Plan - Follow Up Plan Condition: FAIR Disposition: HOME/ ROUTINE Instructions: Acid Reflux (Gastroesophageal Reflux Disease), Adult (DC), Chest Pain (DC), Heart Disease in Women (DC), Aluminum Hydroxide, Magnesium Hydroxide, and Simethicone Additional Instructions: Please f/u with PMD in 3-5 days Please f/u with Dr. Jac hood in 1-2 weeks - f/u visit - call and make appointment Please resume all home medications
--- NOTE | 2018-08-12 05:12 | DS ---
DISCHARGE DIAGNOSIS: Noncoronary chest pain. HISTORY OF PRESENT ILLNESS: This is a 58-year-old female with history of chest pain. VT was ruled out by a series of negative cardiac enzymes in 06/2018. Her echocardiogram is negative. The patient needs an outpatient followup with PMD and possibly cardiology evaluation. I explained to the patient and the patient is for discharge. CONDITION UPON DISCHARGE: Stable. She will be followed up by her own PMD on outpatient basis. Jonah Girard MD
--- NOTE | 2018-08-12 10:15 | CP.PCM.PN ---
Subjective - Date & Time of Evaluation Date of Evaluation: 08/11/18 Time of Evaluation: 11:25 - Subjective Subjective: patient seen and evaluated No chest pain today Review Of Systems Constitutional: Negative for: Fever, Chills Eyes: Negative for: Vision Change Cardiovascular: Positive for: Chest Pain. Negative for: Palpitations Respiratory: Positive for: Shortness of Breath. Negative for: Cough Gastrointestinal: Negative for: Nausea, Vomiting, Abdominal Pain Skin: Negative for: Rash Neurological: Negative for: Weakness, Numbness, Headache, Dizziness Physical Exam - Physical Exam Appears: Non-toxic, No Acute Distress Skin: Normal Color, Warm, Dry, No Rash Head: Atraumatic, Normacephalic Eye(s): bilateral: Normal Inspection Neck: Normal ROM, Supple Chest: Symmetrical, Tenderness (left sided anterior wall) Cardiovascular: Rhythm Regular Respiratory: Normal Breath Sounds, No Rales, No Rhonchi, No Wheezing Gastrointestinal/Abdominal: Soft, No Tenderness Extremity: Normal ROM, No Tenderness, No Swelling Neurological/Psych: Oriented x3, Normal Speech, Normal Cognition Gait: Steady Objective - Vital Signs/Intake and Output Vital Signs (last 24 hours): Temp Pulse Resp BP Pulse Ox 97.9 F 65 20 105/70 94 L 08/11/18 07:00 08/11/18 07:00 08/11/18 07:00 08/11/18 07:00 08/11/18 07:00 - Labs Labs: 08/10/18 05:18 08/10/18 05:18 PT 11.8 SECONDS (9.7-12.2) 08/10/18 05:18 INR 1.1 08/10/18 05:18 APTT 30.0 SECONDS (21-34) 08/10/18 05:18 Assessment and Plan - Assessment and Plan (Free Text) Assessment: Patient chest pain free TRop x 3 negative EKG: Normal No significant cardiac risk factors Stress and ECHO as out patient Advised to follow up with my office in 2-3 weeks Contact number given to patient to schedule appointment
== END 2018-08-11 16:00 | disposition home or self-care (01) ==
LOC: C.ER 04:32 → C.9E 06:42 → C.6T 06:58
PROVIDERS: ADMIT Internal Medicine; ATTEND Internal Medicine
DX: R07.89 Other chest pain (principal); K21.9 Gastro-esophageal reflux disease without esophagitis; Z79.82 Long term (current) use of aspirin
CPT/HCPCS: 36415; 71045; 80053; 80061; 81001; 82550; 82553; 84484; 85025; 85378; 85610; 85730; 99285; G0378; J1650

== ENCOUNTER 2018-08-23 02:07 | Emergency (ER) | payer MEDICAID ==
[2018-08-23 02:08] VITALS: BMI 29.5
--- NOTE | 2018-08-23 05:00 | C.PDOC ---
History Of Present Illness 58 year old female at approximately 9pm began having severe frontal headache. She did not take any medications for it. Patient reports she has gotten headaches in the past but feels like this one is different. She takes daily vitamins but no other medications and has no medical problems. Denies fever, vomiting, neck pain, or weakness. Time Seen by Provider: 08/23/18 02:12 Chief Complaint (Nursing): Headache History Per: Patient History/Exam Limitations: no limitations Onset/Duration Of Symptoms: Hrs Current Symptoms Are (Timing): Still Present Preceeding Symptoms: None Associated Symptoms: denies: Vomiting, Other (Fever, neck pain, weakness) Past Medical History Reviewed: Historical Data, Nursing Documentation, Vital Signs Vital Signs: Last Vital Signs Temp 98.0 F 08/23/18 02:30 Pulse 62 08/23/18 02:30 Resp 16 08/23/18 02:30 BP Pulse Ox 99 08/23/18 02:30 Primary Care Provider: Venecia Escalante - Medical History PMH: Arthritis, Gastritis, GERD Denies: Chronic Kidney Disease Family History: States: Unknown Family Hx - Social History Hx Alcohol Use: No Hx Substance Use: No - Immunization History Hx Tetanus Toxoid Vaccination: No Hx Influenza Vaccination: Yes (2018) Hx Pneumococcal Vaccination: No Review Of Systems Constitutional: Negative for: Fever, Chills Respiratory: Negative for: Cough Gastrointestinal: Negative for: Nausea, Vomiting Musculoskeletal: Negative for: Neck Pain Neurological: Positive for: Headache. Negative for: Weakness, Numbness Physical Exam - Physical Exam Appears: Well, Non-toxic, No Acute Distress Skin: Normal Color, Warm Head: Atraumatic, Normacephalic Eye(s): bilateral: Normal Inspection ( No photophobia), PERRL, EOMI Ear(s): Bilateral: Normal Nose: Normal Oral Mucosa: Moist Neck: Normal ROM, No Midline Cervical Tenderness, No Paracervical Tenderness, Supple Extremity: Normal ROM (x4) Neurological/Psych: Oriented x3, Normal Speech, Normal Cranial Nerves, Normal Motor, Normal Sensation ED Course And Treatment O2 Sat by Pulse Oximetry: 99 (Room air) Pulse Ox Interpretation: Normal - CT Scan/US CT Head Other Rad Studies (CT/US): Read By Radiologist, Radiology Report Reviewed CT/US Interpretation: CT SCAN OF THE BRAIN WITHOUT IV CONTRAST. CLINICAL INDICATION: Headache. TECHNIQUE: Axial images of the brain obtained without IV contrast administration. COMPARISON: 01/23/2016. Normal size of the ventricles and extra-axial spaces for the patient's age. Normal white matter tracts of the supratentorial brain. Normal basal ganglia and thalami. Normal brainstem. Normal cerebellum. There is no demonstrated extra-axial, intraparenchymal, or intraventricular hemorrhage. There are no findings of an acute ischemic infarction. Normal calvarium. There is no demonstrated fracture. Normal soft tissue structures. Normal visualized paranasal sinuses. IMPRESSION: Normal unenhanced CT scan of the brain. Medical Decision Making Medical Decision Making: While waiting for CT results before receiving meds patient reports headache all but resolved. CT was negative, patient reports improvment, stable for dc to follow up with primary, return precautions given. Disposition Counseled Patient/Family Regarding: Diagnosis, Need For Followup - Disposition Disposition: HOME/ ROUTINE Disposition Time: 04:58 Condition: IMPROVED Additional Instructions: [employer] ibuprofeno o tylenol segn lo indicado en la etiqueta segn sea necesario si el dolor de erlin regresa. Si el dolor de erlin empeora, regrese a la carlyle de emergencias. 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 - Scribe Statement The provider has reviewed the documentation as recorded by the Scribe Justino Figueroa All medical record entries made by the Scribe were at my direction and personally dictated by me. I have reviewed the chart and agree that the record accurately reflects my personal performance of the history, physical exam, medical decision making, and the department course for this patient. I have also personally directed, reviewed, and agree with the discharge instructions and disposition.
[2018-08-23 05:15] VITALS: BP 134/89; PULSE 78; RESP 20; TEMP 98
[2018-08-23 05:55] VITALS: O2SAT 99
--- NOTE | 2018-08-23 08:10 | CT ---
Date of service: 08/23/2018 PROCEDURE: CT HEAD WITHOUT CONTRAST. HISTORY: HEADACHE COMPARISON: 08/23/2018 TECHNIQUE: Axial computed tomography images were obtained through the head/brain without intravenous contrast. Radiation dose: Total exam DLP = 1113.47 mGy-cm. This CT exam was performed using one or more of the following dose reduction techniques: Automated exposure control, adjustment of the mA and/or kV according to patient size, and/or use of iterative reconstruction technique. FINDINGS: HEMORRHAGE: No intracranial hemorrhage. BRAIN: No mass effect or edema. No atrophy or chronic microvascular ischemic changes. VENTRICLES: Unremarkable. No hydrocephalus. CALVARIUM: Unremarkable. PARANASAL SINUSES: Mild mucosal thickening of the ethmoid air cells. MASTOID AIR CELLS: Unremarkable as visualized. No inflammatory changes. OTHER FINDINGS: None. IMPRESSION: No acute intracranial abnormality. Minimal sinus mucosal disease. If symptoms persists, consider correlation with MRI. A preliminary report was generated at 4:05 a.m. on 08/23/[address] Bk Black from [employer].
== END 2018-08-23 05:12 | disposition home or self-care (01) ==
LOC: C.ER 02:07
DX: R51 Headache (principal)